=== PATIENT | female | born 1970 | race Caucasian/White ===

== ENCOUNTER 2017-09-01 11:27 | Emergency (ER) | payer BC ==
--- NOTE | 2017-09-01 12:19 | EDPHY ---
H & P Stated Complaint: RLQ PAIN Time Seen by Provider: 09/01/17 12:19 HPI/ROS: HPI: This is a 47-year-old female who presents with Chief Complaint: Right lower quadrant pain Location: Right lower quadrant Quality: Pain Duration: 1 month Signs and Symptoms: no fever, no nausea, no vomiting, no hematemesis, no blood in stool, no abdominal bloating, no diarrhea, no back pain, no urinary symptoms , no vaginal bleeding/discharge, no indigestion, no chest pain, no shortness of breath Timing: Worsening Severity: 02/13 Context: Patient has a history of cholecystectomy, hysterectomy presents with right lower quadrant pain that has been gradually worsening over the last month since she stopped taking her Adderall. She reports that she drinks fluid and is active. She had a bowel movement yesterday; small and hard. She is passing flatus. Patient reports that she has history of constipation in the past. Patient denies any fever/nausea/vomiting/diarrhea/blood in stool/vaginal discharge. Modifying Factors: None Comment: ROS: see HPI Constitutional: No fever, no chills, no weight loss Eyes: No blurred vision Respiratory: No shortness of breath, no cough Cardiovascular: No chest pain, no palpitations Gastrointestinal: No nausea, no vomiting, no diarrhea, no hematemesis, no blood in stool Genitourinary: No dysuria, no blood in urine Extremities: No myalgias, no edema Neurologic: No weakness, no numbness Skin: No rashes, no petechiae Hematologic: No bruising, no bleeding MEDICAL/SURGICAL/SOCIAL HISTORY: Medical history: Depression Surgical history: Hysterectomy, cholecystectomy Social history: Family history noncontributory. CONSTITUTIONAL: Severe distress, writhing in bed, middle-aged white female, awake and alert HEENT: Atraumatic and normocephalic, PERRL, EOMI. Nares patent; no rhinorrhea; no nasal mucosal edema. Tympanic membranes clear. Oropharynx clear, no exudate and moist pink mucosa. Airway patent. No lymphadenopathy. No meningismus. Cardiovascular: Normal S1/S2, regular rate, regular rhythm, without murmur rub or gallop. PULMONARY/CHEST: Symmetrical and nontender. Clear to auscultation bilaterally. Good air movement. No accessory muscle usage. ABDOMEN: Soft, nondistended, moderate right lower quadrant tenderness, no rebound, + guarding, no peritoneal signs, no masses or organomegaly. No CVAT. Bowel sounds hypoactive x4. EXTREMITIES: 2/2 pulses, strength 5/5, no deformities, no clubbing, no cyanosis or edema. NEUROLOGICAL: no focal neuro deficits. GCS 15. SKIN: Warm and dry, no erythema. no rash. Good capillary refill. Source: Patient Exam Limitations: No limitations - Personal History LMP (Females 10-55): Hysterectomy Current Tetanus/Diphtheria Vaccine: Yes Current Tetanus Diphtheria and Acellular Pertussis (TDAP): Yes - Medical/Surgical History Hx Asthma: No Hx Chronic Respiratory Disease: No Hx Diabetes: No Hx Cardiac Disease: No Hx Renal Disease: No Hx Cirrhosis: No Hx Alcoholism: No Hx HIV/AIDS: No Hx Splenectomy or Spleen Trauma: No Other PMH: DEPRESSION - Social History Smoking Status: Never smoked Constitutional: Initial Vital Signs Temperature (C) 37.1 C 09/01/17 11:34 Heart Rate 100 09/01/17 11:34 Respiratory Rate 15 09/01/17 11:34 Blood Pressure 116/82 H 09/01/17 11:34 O2 Sat (%) 98 09/01/17 11:34 O2 Delivery Mode Room Air Allergies/Adverse Reactions: No Known Allergies Allergy (Unverified 09/01/17 11:33) Home Medications: Medication Instructions Recorded Magnesium Citrate [Magnesium 300 ml PO ONCE #1 bottle 09/01/17 Citrate 300 ml (*)] Ondansetron Odt [Zofran Odt 4 mg 4 mg PO Q4 PRN #12 tab 09/01/17 (*)] Polyethylene Glycol 3350 [Miralax 17 gm PO DAILY #30 pkt 09/01/17 17 gm (*)] traZODone 09/01/17 Medical Decision Making - Diagnostics Imaging Results: Imaging Impressions Abdomen CT 09/01/17 12:32 Impression: 1. Constipation. No evidence for diverticulitis. 2. Status post cystectomy. Intrahepatic and extrahepatic biliary ductal dilatation, which can be seen status post cholecystectomy. There is also a mildly dilated pancreatic duct. No definite choledochal stone. MRCP could be performed for further evaluation as clinically warranted. 3. Chronic bilateral spondylolysis at L5. Mild early degenerative disk and degenerative joint disease in the lower lumbar spine. Results called and discussed with Kayla Borrero PA-C on September 01, 2017 at 1346 hours. ED Course/Re-evaluation: Labs, urinalysis, IV fluids, IV medication come CT abdomen and pelvis scan ordered Vital signs reviewed upon arrival and no systemic signs and stable. Given 1 L normal saline, IV Toradol, IV Dilaudid 1314: Labs reviewed. No signs of leukocytosis/anemia/LIZET/elevated LFTs/ electrolyte imbalance. Urinalysis shows no signs of infection. No hematuria. Called by radiologist, Dr. Marquez, who advised that appendix looks normal, status post cholecystectomy, no signs of diverticulitis/obstruction. + constipation 1435: Reassessed patient who is sitting up in bed talking and smiling with her friend. Patient given orders to take magnesium citrate 150 mL x1, if no response within 4-6 hours; take another 150 mg of magnesium citrate. She was given a prescription for MiraLax daily. Passed p.o. Trial prior to discharge This patient was seen under the supervision of my secondary supervising physician. I evaluated care for this patient independently. Differential Diagnosis: Abdominal pain including but not limited to appendicitis, cholecystitis, gastritis and urinary tract infection. - Data Points Laboratory Results: Laboratory Results 09/01/17 12:16 09/01/17 12:16 09/01/17 09/01/17 09/01/17 12:16 12:16 11:30 WBC 6.25 10^3/uL 10^3/uL (3.80-9.50) RBC 5.18 10^6/uL 10^6/uL (4.18-5.33) Hgb 15.9 g/dL g/dL (12.6-16.3) Hct 46.0 % % (38.0-47.0) MCV 88.8 fL fL (81.5-99.8) MCH 30.7 pg pg (27.9-34.1) MCHC 34.6 g/dL g/dL (32.4-36.7) RDW 12.0 % % (11.5-15.2) Plt Count 240 10^3/uL 10^3/uL (150-400) MPV 8.8 fL fL (8.7-11.7) Neut % (Auto) 65.2 % % (39.3-74.2) Lymph % (Auto) 28.0 % % (15.0-45.0) [place] % (Auto) 5.8 % % (4.5-13.0) Eos % (Auto) 0.2 % L % (0.6-7.6) Baso % (Auto) 0.5 % % (0.3-1.7) Nucleat RBC Rel Count 0.0 % % (0.0-0.2) Absolute Neuts (auto) 4.08 10^3/uL 10^3/uL (1.70-6.50) Absolute Lymphs (auto) 1.75 10^3/uL 10^3/uL (1.00-3.00) Absolute Monos (auto) 0.36 10^3/uL 10^3/uL (0.30-0.80) Absolute Eos (auto) 0.01 10^3/uL L 10^3/uL (0.03-0.40) Absolute Basos (auto) 0.03 10^3/uL 10^3/uL (0.02-0.10) Absolute Nucleated RBC 0.00 10^3/uL 10^3/uL (0-0.01) Immature Gran % 0.3 % % (0.0-1.1) Immature Gran # 0.02 10^3/uL 10^3/uL (0.00-0.10) Sodium 142 mEq/L mEq/L (135-145) Potassium 3.9 mEq/L mEq/L (3.5-5.2) Chloride 103 mEq/L mEq/L (97-110) Carbon Dioxide 29 mEq/l mEq/l (22-31) Anion Gap 10 mEq/L mEq/L (8-16) BUN 16 mg/dL mg/dL (7-23) Creatinine 0.6 mg/dL mg/dL (0.6-1.0) Estimated GFR > 60 Glucose 88 mg/dL mg/dL (70-100) Calcium 9.9 mg/dL mg/dL (8.5-10.4) Total Bilirubin 0.3 mg/dL mg/dL (0.1-1.4) Conjugated Bilirubin 0.2 mg/dL mg/dL (0.0-0.5) Unconjugated Bilirubin 0.1 mg/dL mg/dL (0.0-1.1) AST 32 IU/L IU/L (14-46) ALT 38 IU/L IU/L (9-52) Alkaline Phosphatase 56 IU/L IU/L (38-126) Total Protein 7.3 g/dL g/dL (6.3-8.2) Albumin 4.4 g/dL g/dL (3.5-5.0) Lipase 87 IU/L IU/L (23-300) Urine Color YELLOW Urine Appearance CLEAR Urine pH 6.0 (5.0-7.5) Ur Specific [place] 1.006 (1.002-1.030) Urine Protein NEGATIVE (NEGATIVE) Urine Ketones NEGATIVE (NEGATIVE) Urine Blood NEGATIVE (NEGATIVE) Urine Nitrate NEGATIVE (NEGATIVE) Urine Bilirubin NEGATIVE (NEGATIVE) Urine Urobilinogen NEGATIVE EU EU (0.2-1.0) Ur Leukocyte Esterase NEGATIVE (NEGATIVE) Urine RBC 1-3 /hpf /hpf (0-3) Urine WBC 1-3 /hpf /hpf (0-3) Ur Epithelial Cells TRACE /lpf /lpf (NONE-1+) Urine Bacteria TRACE /hpf H /hpf (NONE SEEN) Urine Glucose NEGATIVE (NEGATIVE) Medications Given: Discontinued Medications Hydromorphone HCl (Dilaudid) 1 mg IVP EDNOW ONE Stop: 09/01/17 12:32 Last Admin: 09/01/17 12:59 Dose: 1 mg Sodium Chloride (Ns) 1,000 mls @ 0 mls/hr IV EDNOW ONE; Wide Open PRN Reason: Protocol Stop: 09/01/17 12:32 Last Admin: 09/01/17 12:59 Dose: 1,000 mls Ketorolac Tromethamine (Toradol) 15 mg IVP EDNOW ONE Stop: 09/01/17 12:33 Last Admin: 09/01/17 12:59 Dose: 15 mg Ondansetron HCl (Zofran) 4 mg IVP EDNOW ONE Stop: 09/01/17 12:32 Last Admin: 09/01/17 12:59 Dose: 4 mg Departure - Departure Disposition: Home, Routine, Self-Care Clinical Impression: Constipation Qualifiers: Constipation type: other constipation type Qualified Code(s): K59.09 - Other constipation Condition: Good Instructions: Constipation (ED), High Fiber Diet (ED) Additional Instructions: Consume a minimum of 8-10 glasses of water or electrolyte fluid replacement drinks that include Gatorade, Powerade, Pedialyte. Eat a bland diet for the next 48 hours and then slowly advance as tolerated. Take Zofran 1 tab every 4 hours as needed for nausea, vomiting. Take Mag Citrate 150 mL and if no bowel movement in 6 hours take another 150 mL of Magnesium Citrate. Start taking MiraLax daily as needed for constipation. Return to the Emergency Room if symptoms do not resolve in the next 48-72 hours , you spike a fever > 102 F, or experience intractable abdominal pain/nausea/ vomiting. Referrals: Tierra Atkins FNP [Primary Care Provider] - As per Instructions Prescriptions: Magnesium Citrate [Magnesium Citrate 300 ml (*)] 300 ml PO ONCE #1 bottle Ondansetron Odt [Zofran Odt 4 mg (*)] 4 mg PO Q4 PRN #12 tab PRN Reason: Nausea/Vomiting, Use 1st Polyethylene Glycol 3350 [Miralax 17 gm (*)] 17 gm PO DAILY #30 pkt
[2017-09-01] MEDS ORDERED: NS 1,000 ML IV ONE (12:31)
[2017-09-01] MEDS ORDERED: ONDANSETRON 4 MG/2 ML VIAL IVP ONE (12:31)
[2017-09-01] MEDS ORDERED: HYDROmorphONE/DILAUDID 2 MG/ML INJ IVP ONE (12:31)
[2017-09-01] MEDS ORDERED: KETOROLAC 15 MG/1 ML SDV IVP ONE (12:32)
[2017-09-01 12:38] LABS: PLATELET COUNT 240 10^3/uL (150-400)
[2017-09-01] MEDS ORDERED: IOPAMIDOL (ISOVUE-300) 100 ML BTL ONE (13:10)
[2017-09-01 15:05] VITALS: BP 122/81
== END 2017-09-01 15:03 | disposition home or self-care (01) ==
DX: K59.09 Other constipation (principal); E86.9 Volume depletion, unspecified; Z90.49 Acquired absence of other specified parts of digestive tract; Z90.710 Acquired absence of both cervix and uterus
CPT/HCPCS: 96374; J1170; J1885; J2405; Q9967

== ENCOUNTER 2017-09-09 15:23 | Emergency (ER) | payer BC ==
--- NOTE | 2017-09-09 16:28 | EDPHY ---
H & P Time Seen by Provider: 09/09/17 16:17 HPI/ROS: CHIEF COMPLAINT: Abdominal pain HISTORY OF PRESENT ILLNESS: The patient is a 47-year-old female who presents emergency department ongoing abdominal pain. T patient was seen in the emergency room on 09/01/2017. Patient states she had a CT scan that showed constipation. Patient was treated with Mag citrate. She had good relief of her constipation at home. However, she has had ongoing right lower quadrant and suprapubic discomfort. Pain is moderate. It is worsening. It radiates up to her right flank. She has had no vomiting. No measured fever. She has chills when she has a bowel movement. REVIEW OF SYSTEMS: My complete review of systems is negative except as mentioned in the HPI. Past Medical/Surgical History: Includes iritis, cyst, depression Past surgical history: Cyst surgery, hysterectomy, oophorectomy Smoking Status: Never smoked Physical Exam: Vitals noted. Afebrile GENERAL: Well-appearing, in no acute distress, alert. HEENT: Eyes normal to inspection, normal pharynx, no signs of dehydration. NECK: [No thyromegaly, no lymphadenopathy, supple. RESPIRATORY: Clear to auscultation bilaterally, no rales, rhonchi or wheezing. CVS: Regular rate and rhythm, no rubs, murmurs, or gallops. ABDOMEN: Soft, mild right lower quadrant and suprapubic tenderness palpation with no rebound or guarding, nondistended, no organomegaly. BACK: Normal to inspection, no CVA tenderness. SKIN: Normal color, no rash, warm, dry. No pallor. EXTREMITIES: No pedal edema, no calf tenderness, no Hom[place] sign or cords, no joint swelling. NEURO/PSYCH: Alert and oriented, normal mood and affect, normal motor sensory exam. Constitutional: Initial Vital Signs Temperature (C) 36.7 C 09/09/17 15:44 Heart Rate 83 09/09/17 15:44 Respiratory Rate 18 09/09/17 15:44 Blood Pressure 112/79 09/09/17 15:44 O2 Sat (%) 97 09/09/17 15:44 O2 Delivery Mode Room Air Allergies/Adverse Reactions: No Known Allergies Allergy (Verified 09/09/17 15:43) Home Medications: Medication Instructions Recorded Magnesium Citrate [Magnesium 300 ml PO ONCE #1 bottle 09/01/17 Citrate 300 ml (*)] Ondansetron Odt [Zofran Odt 4 mg 4 mg PO Q4 PRN #12 tab 09/01/17 (*)] Polyethylene Glycol 3350 [Miralax 17 gm PO DAILY #30 pkt 09/01/17 17 gm (*)] traZODone 09/01/17 Cymbalta 09/09/17 PREMARIN 09/09/17 Medical Decision Making ED Course/Re-evaluation: In the emergency department I discussed possible etiologies with the patient. I answered all her questions. An IV was placed. Laboratory studies were obtained. Patient's CBC was normal. Chemistry panel and LFTs were normal. negative. I discussed the results with the patient. She was lying comfortably in the bed. CT scan was ordered for her right lower quadrant pain. CT abdomen pelvis: Please refer the dictated report. Patient is still constipated. No visible appendicitis. No obstruction. I discussed the results with the patient. I answered all her questions. The patient will take an additional dose of Mag citrate. She will be prescribed Colace. She will use Fleet's enema 3 times a day. I discussed this with the patient. She was given warnings prior to leaving. Differential Diagnosis: My differential includes but is not limited to small-bowel obstruction, perforation, adhesions, appendicitis, constipation, renal colic, urinary tract infection, pyelonephritis - Data Points Laboratory Results: Laboratory Results 09/09/17 16:30 09/09/17 16:30 09/09/17 09/09/17 09/09/17 17:00 16:30 16:30 WBC RBC Hgb Hct MCV MCH MCHC RDW Plt Count MPV Neut % (Auto) Lymph % (Auto) [place] % (Auto) Eos % (Auto) Baso % (Auto) Nucleat RBC Rel Count Absolute Neuts (auto) Absolute Lymphs (auto) Absolute Monos (auto) Absolute Eos (auto) Absolute Basos (auto) Absolute Nucleated RBC Immature Gran % Immature Gran # Sodium 141 mEq/L mEq/L (135-145) Potassium 4.3 mEq/L mEq/L (3.5-5.2) Chloride 105 mEq/L mEq/L (97-110) Carbon Dioxide 25 mEq/l mEq/l (22-31) Anion Gap 11 mEq/L mEq/L (8-16) BUN 10 mg/dL mg/dL (7-23) Creatinine 0.6 mg/dL mg/dL (0.6-1.0) Estimated GFR > 60 Glucose 97 mg/dL mg/dL (70-100) Calcium 9.2 mg/dL mg/dL (8.5-10.4) Total Bilirubin 0.4 mg/dL mg/dL (0.1-1.4) Conjugated Bilirubin 0.4 mg/dL mg/dL (0.0-0.5) Unconjugated Bilirubin 0.0 mg/dL mg/dL (0.0-1.1) AST 21 IU/L IU/L (14-46) ALT 33 IU/L IU/L (9-52) Alkaline Phosphatase 45 IU/L IU/L (38-126) Total Protein 6.5 g/dL g/dL (6.3-8.2) Albumin 3.9 g/dL g/dL (3.5-5.0) Lipase 78 IU/L IU/L (23-300) Beta HCG, Qual NEGATIVE Urine Color PALE YELLOW Urine Appearance CLEAR Urine pH 6.0 (5.0-7.5) Ur Specific [place] 1.004 (1.002-1.030) Urine Protein NEGATIVE (NEGATIVE) Urine Ketones NEGATIVE (NEGATIVE) Urine Blood NEGATIVE (NEGATIVE) Urine Nitrate NEGATIVE (NEGATIVE) Urine Bilirubin NEGATIVE (NEGATIVE) Urine Urobilinogen NEGATIVE EU EU (0.2-1.0) Ur Leukocyte Esterase NEGATIVE (NEGATIVE) Urine RBC 1-3 /hpf /hpf (0-3) Urine WBC 1-3 /hpf /hpf (0-3) Ur Epithelial Cells TRACE /lpf /lpf (NONE-1+) Urine Bacteria TRACE /hpf H /hpf (NONE SEEN) Urine Glucose NEGATIVE (NEGATIVE) 09/09/17 16:30 WBC 4.48 10^3/uL 10^3/uL (3.80-9.50) RBC 4.86 10^6/uL 10^6/uL (4.18-5.33) Hgb 15.0 g/dL g/dL (12.6-16.3) Hct 43.9 % % (38.0-47.0) MCV 90.3 fL fL (81.5-99.8) MCH 30.9 pg pg (27.9-34.1) MCHC 34.2 g/dL g/dL (32.4-36.7) RDW 12.3 % % (11.5-15.2) Plt Count 217 10^3/uL 10^3/uL (150-400) MPV 8.5 fL L fL (8.7-11.7) Neut % (Auto) 56.0 % % (39.3-74.2) Lymph % (Auto) 34.2 % % (15.0-45.0) [place] % (Auto) 8.0 % % (4.5-13.0) Eos % (Auto) 0.7 % % (0.6-7.6) Baso % (Auto) 0.7 % % (0.3-1.7) Nucleat RBC Rel Count 0.0 % % (0.0-0.2) Absolute Neuts (auto) 2.51 10^3/uL 10^3/uL (1.70-6.50) Absolute Lymphs (auto) 1.53 10^3/uL 10^3/uL (1.00-3.00) Absolute Monos (auto) 0.36 10^3/uL 10^3/uL (0.30-0.80) Absolute Eos (auto) 0.03 10^3/uL 10^3/uL (0.03-0.40) Absolute Basos (auto) 0.03 10^3/uL 10^3/uL (0.02-0.10) Absolute Nucleated RBC 0.00 10^3/uL 10^3/uL (0-0.01) Immature Gran % 0.4 % % (0.0-1.1) Immature Gran # 0.02 10^3/uL 10^3/uL (0.00-0.10) Sodium Potassium Chloride Carbon Dioxide Anion Gap BUN Creatinine Estimated GFR Glucose Calcium Total Bilirubin Conjugated Bilirubin Unconjugated Bilirubin AST ALT Alkaline Phosphatase Total Protein Albumin Lipase Beta HCG, Qual Urine Color Urine Appearance Urine pH Ur Specific [place] Urine Protein Urine Ketones Urine Blood Urine Nitrate Urine Bilirubin Urine Urobilinogen Ur Leukocyte Esterase Urine RBC Urine WBC Ur Epithelial Cells Urine Bacteria Urine Glucose Medications Given: Discontinued Medications Fentanyl (Sublimaze) 50 mcg IVP EDNOW ONE Stop: 09/09/17 16:30 Last Admin: 09/09/17 16:36 Dose: 50 mcg Sodium Chloride (Ns) 1,000 mls @ 0 mls/hr IV EDNOW ONE; Wide Open PRN Reason: Protocol Stop: 09/09/17 16:30 Last Admin: 09/09/17 16:36 Dose: 1,000 mls Ondansetron HCl (Zofran) 4 mg IVP EDNOW ONE Stop: 09/09/17 16:30 Last Admin: 09/09/17 16:36 Dose: 4 mg Departure - Departure Disposition: Home, Routine, Self-Care Clinical Impression: Abdominal pain Qualifiers: Abdominal location: lower abdomen, unspecified Qualified Code(s): R10.30 - Lower abdominal pain, unspecified Constipation Qualifiers: Constipation type: other constipation type Qualified Code(s): K59.09 - Other constipation Condition: Good Instructions: Acute Abdominal Pain (ED) Additional Instructions: Return with increasing pain, vomiting, fever or any other concerns. Referrals: Joey Miller MD [Medical Doctor] - 5-7 days, if not improved
[2017-09-09] MEDS ORDERED: ONDANSETRON 4 MG/2 ML VIAL IVP ONE (16:29)
[2017-09-09] MEDS ORDERED: fentaNYL 100 MCG/2 ML INJ IVP ONE (16:29)
[2017-09-09] MEDS ORDERED: NS 1,000 ML IV ONE (16:29)
[2017-09-09 16:41] LABS: PLATELET COUNT 217 10^3/uL (150-400)
[2017-09-09] MEDS ORDERED: IOPAMIDOL (ISOVUE-300) 100 ML BTL ONE (17:41)
[2017-09-09 18:42] VITALS: BP 110/73
== END 2017-09-09 18:42 | disposition home or self-care (01) ==
DX: K59.09 Other constipation (principal); E86.9 Volume depletion, unspecified; Z90.710 Acquired absence of both cervix and uterus
CPT/HCPCS: 96374; J2405; J3010; Q9967

== ENCOUNTER 2017-09-14 13:04 | Emergency (ER) | payer BC ==
--- NOTE | 2017-09-14 13:24 | EDPHY ---
H & P Stated Complaint: R AND L PELVIC PAIN, AND LOWER BACK PAIN Time Seen by Provider: 09/14/17 13:20 HPI/ROS: CHIEF COMPLAINT: Right low pelvic pain, right flank pain HISTORY OF PRESENT ILLNESS: This is a 47-year-old female who presents the emergency department for her 3rd visit in 6 weeks time for ongoing right low abdominal pain. Patient is status post total hysterectomy, bilateral salpingectomy, and bilateral oophorectomy the performed a number of years ago for cyst and endometriosis. She has presented on 2 occasions previously with complaints of severe right adnexal pain, right lower quadrant pain, right flank pain, and left adnexal pain. CT scans performed on both occasions demonstrates significant constipation with no other findings. Patient presents today with similar complaints. She has significant waves of right lower quadrant/right adnexal discomfort. Denies fevers. No vomiting but she is nauseous. No diarrhea. Previously, when she has had treatment for her constipation, her symptoms improve but then return. No fever, chills, chest pain, shortness of breath, palpitations, vomiting, diarrhea, urinary complaints, headache, lightheadedness. REVIEW OF SYSTEMS: Aside from elements discussed in the HPI, a comprehensive 10-point review of systems was reviewed and is negative. PAST MEDICAL HISTORY: Rheumatoid arthritis, endometriosis. SOCIAL HISTORY: Positive marijuana, nonsmoker, no alcohol use. VITAL SIGNS Reviewed by me. GENERAL: Appears uncomfortable, shaky, holding her right lower stomach. HEENT: Atraumatic. Eyes: No icterus, no injection. Mouth: moist mucous membranes. No erythema or lesions. Neck: supple with no adenopathy. LUNGS: Clear to auscultation bilaterally, no wheezes, rhonchi or rales. CARDIAC: Regular rate and rhythm, no rubs, murmurs or gallops. ABDOMEN: Soft, nondistended. Significant tenderness in the right lower quadrant, and right adnexal area. Voluntary guarding. Also suprapubic tenderness. BACK: No CVA tenderness. EXTREMITIES: No trauma. No edema. Range of motion is normal throughout. NEURO: Alert and oriented, grossly nonfocal. SKIN: Warm and dry, no rash. PSYCHIATRIC: Normal mentation, no agitation. - Personal History LMP (Females 10-55): Hysterectomy Current Tetanus Diphtheria and Acellular Pertussis (TDAP): Yes - Medical/Surgical History Hx Asthma: No Hx Chronic Respiratory Disease: No Hx Diabetes: No Hx Cardiac Disease: No Hx Renal Disease: No Hx Cirrhosis: No Hx Alcoholism: No Hx HIV/AIDS: No Hx Splenectomy or Spleen Trauma: No Other PMH: DEPRESSION, HYSTERECTOMY, DOUBLE MASTECTOMY PROPHYLACTIC, MAKENNA SX - Social History Smoking Status: Never smoked Constitutional: Initial Vital Signs Temperature (C) 37.0 C 09/14/17 13:10 Heart Rate 124 H 09/14/17 13:10 Respiratory Rate 20 09/14/17 13:10 Blood Pressure 124/110 H 09/14/17 13:10 O2 Sat (%) 96 09/14/17 13:10 O2 Delivery Mode Room Air Allergies/Adverse Reactions: No Known Allergies Allergy (Verified 09/09/17 15:43) Home Medications: Medication Instructions Recorded Magnesium Citrate [Magnesium 300 ml PO ONCE #1 bottle 09/01/17 Citrate 300 ml (*)] Ondansetron Odt [Zofran Odt 4 mg 4 mg PO Q4 PRN #12 tab 09/01/17 (*)] Polyethylene Glycol 3350 [Miralax 17 gm PO DAILY #30 pkt 09/01/17 17 gm (*)] traZODone 09/01/17 Cymbalta 09/09/17 Docusate Sodium [Colace 100 MG (*)] 100 mg PO BID 7 Days cap 09/09/17 Magnesium Citrate [Magnesium 300 ml PO ONCE #1 bottle 09/09/17 Citrate 300 ml (*)] PREMARIN 09/09/17 Dicyclomine [Bentyl 20 MG (*)] 20 mg PO QID #40 tab 09/14/17 Medical Decision Making - Diagnostics Imaging Results: Pelvic/Renal Ultrasound 09/14/17 13:49 Impression: 1. Status post hysterectomy and bilateral oophorectomies, with no adnexal mass. 2. Numerous fluid-filled loops of peristalsing bowel seen within the pelvis. Given the patient's symptoms, could she have an enteric dysmotile syndrome? Findings were discussed with Moon Johnson MD at 14:57, on 09/14/2017. . ED Course/Re-evaluation: Review patient's prior charts demonstrates 2 CT scans which have only indicated significant constipation. Patient has not seen Gastroenterology and does not have a Dumpster Driver who she has seen. She reports that the pain is coming in waves. Patient received Zofran, Toradol, Dilaudid. Pelvic ultrasound was obtained. Labs are largely unremarkable. Ultrasound today demonstrates multiple fluid-filled loops of bowel sitting in the low pelvis. Radiology is impression is that this may represent a GI dysmotility syndrome. Patient was improved with Bentyl. She will follow up with Gastroenterology on an urgent basis and have also given referral to Assembly Inspector Helper. We discussed GI dysmotility syndrome as well as discussed the need for a colonoscopy to evaluate for her issues with ongoing constipation. We discussed the possibility of residual endometriosis and encouraged her to follow up with Assembly Inspector Helper. She feels comfortable being discharged. Differential Diagnosis: The differential diagnosis for the patient's abdominal pain was considered including but not limited to chronic pelvic pain, constipation, urinary tract infection, appendicitis, endometriosis. - Data Points Laboratory Results: Laboratory Results 09/14/17 14:06 09/14/17 14:06 Medications Given: Discontinued Medications Al Hydroxide/Mg Hydroxide (Maalox Susp) 30 ml PO EDNOW ONE Stop: 09/14/17 14:52 Last Admin: 09/14/17 14:56 Dose: 30 ml Dicyclomine HCl (Bentyl) 20 mg PO EDNOW ONE Stop: 09/14/17 15:04 Last Admin: 09/14/17 15:11 Dose: 20 mg Diphenhydramine HCl (Benadryl Injection) 25 mg IVP EDNOW ONE Stop: 09/14/17 15:04 Last Admin: 09/14/17 15:12 Dose: 25 mg Haloperidol Lactate (Haldol Injection) 2.5 mg IVP EDNOW ONE Stop: 09/14/17 15:04 Last Admin: 09/14/17 15:12 Dose: 2.5 mg Hydromorphone HCl (Dilaudid) 1 mg IVP EDNOW ONE Stop: 09/14/17 13:50 Last Admin: 09/14/17 14:05 Dose: 1 mg Sodium Chloride (Ns) 1,000 mls @ 0 mls/hr IV EDNOW ONE; Wide Open PRN Reason: Protocol Stop: 09/14/17 13:50 Last Admin: 09/14/17 14:05 Dose: 1,000 mls Sodium Chloride (Ns) 1,000 mls @ 0 mls/hr IV ONCE ONE; Wide Open PRN Reason: Protocol Stop: 09/14/17 13:51 Last Admin: 09/14/17 15:37 Dose: 1,000 mls Ketorolac Tromethamine (Toradol) 30 mg IVP EDNOW ONE Stop: 09/14/17 13:50 Last Admin: 09/14/17 14:04 Dose: 30 mg Metoclopramide HCl (Reglan Injection) 10 mg IVP EDNOW ONE Stop: 09/14/17 15:04 Last Admin: 09/14/17 15:13 Dose: 10 mg Ondansetron HCl (Zofran) 4 mg IVP EDNOW ONE Stop: 09/14/17 13:50 Last Admin: 09/14/17 14:06 Dose: 4 mg Departure - Departure Disposition: Home, Routine, Self-Care Clinical Impression: Abdominal pain Qualifiers: Abdominal location: lower abdomen, unspecified Qualified Code(s): R10.30 - Lower abdominal pain, unspecified Condition: Good Instructions: Dicyclomine (By mouth), Chronic Abdominal Pain (ED) Additional Instructions: Please make an appointment and follow up with GI as soon as possible. You have also been given referral to dice table operator. I suggest you begin taking Bentyl as directed. I also recommend repeating MiraLax. For pain, please consider ibuprofen 600 mg every 8 hr with food around the clock for anti inflammation as well as anti prostaglandin effects. Referrals: Tierra Atkins, [facility] [Primary Care Provider] - As per Instructions Joey Miller MD [Medical Doctor] - As per Instructions Twila Russell MD [Medical Doctor] - As per Instructions Prescriptions: Dicyclomine [Bentyl 20 MG (*)] 20 mg PO QID #40 tab
[2017-09-14] MEDS ORDERED: KETOROLAC 30 MG/1 ML SDV IVP ONE (13:49)
[2017-09-14] MEDS ORDERED: HYDROmorphONE/DILAUDID 2 MG/ML INJ IVP ONE (13:49)
[2017-09-14] MEDS ORDERED: ONDANSETRON 4 MG/2 ML VIAL IVP ONE (13:49)
[2017-09-14] MEDS ORDERED: NS 1,000 ML IV ONE ×2 (13:49→13:50)
[2017-09-14 14:16] LABS: PLATELET COUNT 226 10^3/uL (150-400)
[2017-09-14] MEDS ORDERED: MAG HYDROX/AL HYDROX/SIMETH 30 ML UDCUP PO ONE (14:51)
[2017-09-14] MEDS ORDERED: MAG HYDROX/AL HYDROX/SIMETH 30 ML UDCUP ONE (14:52)
[2017-09-14] MEDS ORDERED: DICYCLOMINE 10 MG CAP PO ONE (15:03)
[2017-09-14] MEDS ORDERED: HALOPERIDOL LACT 5 MG/ML INJ IVP ONE (15:03)
[2017-09-14] MEDS ORDERED: METOCLOPRAMIDE 10 MG/2 ML VIAL IVP ONE (15:03)
[2017-09-14 16:49] VITALS: BP 129/77
== END 2017-09-14 16:50 | disposition home or self-care (01) ==
DX: R10.31 Right lower quadrant pain (principal); E86.9 Volume depletion, unspecified; Z90.710 Acquired absence of both cervix and uterus
CPT/HCPCS: 96374; J1170; J1200; J1630; J1885; J2405; J2765

== ENCOUNTER 2017-09-18 11:50 | Inpatient (IN) | payer BC ==
--- NOTE | 2017-09-18 13:09 | EDPHY ---
H & P Stated Complaint: RLQ abd pain - Personal History LMP (Females 10-55): Hysterectomy Current Tetanus/Diphtheria Vaccine: Yes Current Tetanus Diphtheria and Acellular Pertussis (TDAP): Yes - Medical/Surgical History Hx Asthma: No Hx Chronic Respiratory Disease: No Hx Diabetes: No Hx Cardiac Disease: No Hx Renal Disease: No Hx Cirrhosis: No Hx Alcoholism: No Hx HIV/AIDS: No Hx Splenectomy or Spleen Trauma: No Other PMH: DEPRESSION, HYSTERECTOMY, DOUBLE MASTECTOMY PROPHYLACTIC, MAKENNA SX - Social History Smoking Status: Never smoked Time Seen by Provider: 09/18/17 12:57 HPI/ROS: CHIEF COMPLAINT: Continued right lower quadrant abdominal HISTORY OF PRESENT ILLNESS: 47-year-old female in the ER complaining of continued right lower quadrant abdominal pain. This is her 4th emergency department visit in 6 weeks for same complaints. She has had CT x2, pelvic ultrasonography x1. She has a remote history of total hysterectomy and multiple abdominal surgeries for endometriosis. She has had positive bowel movements with no melena or hematochezia but notes that the pain continues. REVIEW OF SYSTEMS: A ten point review of systems was performed and is negative with the exception of the items mentioned in the HPI PAST MEDICAL & SURGICAL HISTORY: Total hysterectomy. Rheumatoid arthritis. Endometriosis. SOCIAL HISTORY: Nonsmoker. PHYSICAL EXAM (Prior to examination, patient consented to physical exam, hands were washed and my usual and customary physical exam procedures followed) 1) GENERAL: Well-developed, well-nourished, alert and oriented. Appears uncomfortable, crying 2) HEAD: Normocephalic, atraumatic 3) HEENT: Pupils equal, round, reactive to light bilaterally. Sclera anicteric. Nasopharynx, oropharynx, clear, no lesions. 4) NECK: Full range of motion, no meningeal signs. 5) LUNGS: Clear auscultation bilaterally, no wheezes, no rhonchi, no retractions. 6) HEART: Regular rate and rhythm, no murmur, no heave, no gallop. 7) ABDOMEN: Guarding abdomen, tender to palpation right lower quadrant,, 8) MUSCULOSKELETAL: Moving all extremities, no focal areas of tenderness, no obvious trauma. No peripheral edema or discoloration. 9) BACK: No CVA tenderness, no midline vertebral tenderness, no fluctuance, no step-off, no obvious trauma, no visual or palpable abnormality. 10) SKIN: No rash, no petechiae. 11) Psychiatric: Patient is oriented X 3, there is no agitation. DIFFERENTIAL DIAGNOSIS: My differential diagnosis includes, but is not limited to, acute appendicitis, acute cholecystitis, bowel obstruction, acute pancreatitis, ovarian torsion, ectopic , gastritis and urinary tract infection. The patient understands that this diagnosis is provisional and can never be 100% accurate. This is a partial list of diagnoses considered. These considerations are based on history, physical exam, past history and reassessment. (Negrito De Jesus) Constitutional: Initial Vital Signs Temperature (C) 37 C 09/18/17 11:53 Heart Rate 98 09/18/17 11:53 Respiratory Rate 16 09/18/17 11:53 Blood Pressure 120/82 H 09/18/17 11:53 O2 Sat (%) 96 09/18/17 11:53 O2 Delivery Mode Room Air Allergies/Adverse Reactions: No Known Allergies Allergy (Verified 09/18/17 11:53) Home Medications: Medication Instructions Recorded DULoxetine [Cymbalta 60 MG (*)] 60 mg PO HS 09/18/17 Docusate Sodium [Colace 100 MG (*)] 400 mg PO HS 09/18/17 Estrogens,Conjugated [Premarin 0.3 0.3 mg PO HS 09/18/17 MG (*)] Magnesium Hydroxide [Milk of 2,400 mg PO DAILY PRN 09/18/17 Magnesia] Melatonin [Melatonin 3 MG (*)] 3 mg PO HS 09/18/17 Naproxen Sodium [Aleve 220 MG (*)] 440 mg PO DAILY PRN 09/18/17 traZODone [traZODONE 100MG (*)] 100 mg PO HS 09/18/17 Medical Decision Making - Diagnostics Imaging Results: Images reviewed myself (Negrito De Jesus) ED Course/Re-evaluation: 1:40 p.m.: Patient noted to have multiple air-fluid levels on upright abdominal x-ray. Will plan on further diagnostic studies including CT imaging and admission as she has had multiple ER visits recently for similar complaints. Care of patient under supervision of secondary supervising physician Dr Barber . 3:26 p.m.: Discussed with patient her imaging results. She continues to complain of quite a bit of discomfort. Plan will be admission to hospital which patient is comfortable and agreeable with. Doubt acute appendicitis. Consultation with hospitalist Dr. López who will admit patient. (Negrito De Jesus ) I did not see this patient while she was in the emergency department. However her care was discussed with the PA while the patient was in the department. Agree with treatment plan and management (Dung Barber) - Data Points Laboratory Results: Laboratory Results 09/18/17 13:53 09/18/17 13:53 Medications Given: Acetaminophen (Tylenol) 650 mg PO Q4HRS PRN PRN Reason: Pain, Mild/Fever, Can Take PO Stop: 03/17/18 16:10 Last Admin: 09/20/17 10:08 Dose: 650 mg Docusate Sodium (Colace) 200 mg PO HS EVERARDO Stop: 03/17/18 20:59 Last Admin: 09/19/17 21:04 Dose: 200 mg Duloxetine HCl (Cymbalta) 60 mg PO HS EVERARDO Stop: 03/17/18 20:59 Last Admin: 09/20/17 21:06 Dose: 60 mg Estrogens Conjugated (Premarin) 0.3 mg PO HS EVERARDO Stop: 03/17/18 20:59 Last Admin: 09/20/17 21:06 Dose: 0.3 mg Hydromorphone/Sodium Chloride (Hydromorphone) 0.2 - 0.4 mg IVP Q2H PRN PRN Reason: Pain, Severe Unable to Take PO Stop: 09/30/17 11:59 Last Admin: 09/21/17 00:31 Dose: 0.2 mg Dextrose/Sodium Chloride (D5w Ns) 1,000 mls @ 100 mls/hr IV CONT EVERARDO Stop: 03/17/18 17:29 Last Admin: 09/19/17 15:40 Dose: 1,000 mls Lactated Ringer's (Lr) 1,000 mls @ 25 mls/hr IV ONCALL ONE Stop: 09/22/17 02:54 Last Admin: 09/20/17 11:26 Dose: 1,000 mls Melatonin (Melatonin) 3 mg PO HS EVERARDO Stop: 03/17/18 20:59 Last Admin: 09/20/17 21:06 Dose: 3 mg Ondansetron HCl (Zofran) 4 mg IVP Q4HRS PRN PRN Reason: Nausea/Vomiting, Can't Take PO Stop: 03/17/18 16:10 Last Admin: 09/19/17 23:36 Dose: 4 mg Ondansetron HCl (Zofran Odt) 4 mg PO Q4HRS PRN PRN Reason: Nausea/Vomiting, Use 1st Stop: 03/17/18 16:10 Last Admin: 09/20/17 09:00 Dose: 4 mg Oxycodone HCl (Oxycodone Ir) 5 - 10 mg PO Q3HRS PRN PRN Reason: Pain, Severe Able to Take PO Stop: 09/28/17 16:10 Last Admin: 09/20/17 08:46 Dose: 10 mg Trazodone HCl (Trazodone) 100 mg PO HS EVERARDO Stop: 03/17/18 20:59 Last Admin: 09/20/17 21:06 Dose: 100 mg Discontinued Medications Hydromorphone HCl (Dilaudid) 0.2 - 0.4 mg IVP Q4HRS PRN PRN Reason: Pain, Severe Unable to Take PO Stop: 09/28/17 16:10 Last Admin: 09/19/17 16:49 Dose: 0.4 mg Hydromorphone HCl (Dilaudid) 1 mg IVP ONCE ONE Stop: 09/19/17 13:07 Last Admin: 09/19/17 13:13 Dose: 1 mg Hydromorphone HCl (Dilaudid) 0.2 - 0.4 mg IVP Q4HRS PRN PRN Reason: Pain, Severe Unable to Take PO Stop: 09/28/17 16:10 Last Admin: 09/20/17 12:00 Dose: 0.4 mg Hydromorphone HCl (Dilaudid) 0.1 - 0.4 mg IVP Q10M PRN PRN Reason: PACU, PAIN Stop: 09/20/17 13:08 Last Admin: 09/20/17 13:40 Dose: 0.4 mg Hydromorphone/Sodium Chloride (Hydromorphone) 0.2 - 0.4 mg IVP Q4HRS PRN PRN Reason: Pain, Severe Unable to Take PO Stop: 09/28/17 16:10 Last Admin: 09/20/17 06:00 Dose: 0.4 mg Ondansetron HCl (Zofran) 2 - 4 mg IVP Q10M PRN PRN Reason: PACU, Nausea/Vomiting Stop: 09/20/17 13:08 Last Admin: 09/20/17 13:36 Dose: 4 mg Polyethylene Glycol/Electrolytes (Gavilyte - G) 4,000 ml PO ONCE ONE Stop: 09/19/17 16:36 Last Admin: 09/19/17 16:48 Dose: 4,000 ml Departure - Departure Disposition: [facility] Inpatient Acute Clinical Impression: Ileus Abdominal pain Qualifiers: Abdominal location: right lower quadrant Qualified Code(s): R10.31 - Right lower quadrant pain Condition: Fair
[2017-09-18 14:03] LABS: PLATELET COUNT 232 10^3/uL (150-400)
[2017-09-18] MEDS ORDERED: IOPAMIDOL (ISOVUE-300) 100 ML BTL ONE (14:37)
[2017-09-18] MEDS ORDERED: NAPROXEN SODIUM 220 MG TAB PO PRN (16:13)
[2017-09-18] MEDS ORDERED: D5W NS W/ 20 KCl/L 1,000 ML IV SCH (16:15)
--- NOTE | 2017-09-18 16:19 | PDGENHP ---
History and Physical - Chief Complaint abdominal pain - History of Present Illness 47 yo female with h/o endometriosis and BRCA gene positive s/p b/l mastectomy and TLH-BSO presents to ED with abdominal pain, worsening over past month. Pain is localized to RLQ. She underwent b/l mastectomy in 2014 and TLH-BSO the following year at which time a "grapefruit sized cyst" was removed from her right adnexal region. Prior to that, she had at least 2 laparoscopic surgeries for endometriosis. She has intermittent abdominal symptoms and generally is able to calm her symptoms down, but her pain has increased over past month and in past 2 days, became unbearable, prompting several visits to the ED. No nausea or vomiting. Her last BM was yesterday and was relatively normal. She uses frequent stool softeners and laxatives. No fevers/chills. She is currently pain free, but given ongoing symptoms and recurrent ED visits, is admitted to the hospital for further management. CT scan in the ED with IV (no oral) contrast showed changes c/w an ileus. History Information - Allergies/Home Medication List Allergies/Adverse Reactions: No Known Allergies Allergy (Verified 09/18/17 11:53) Home Medications: DULoxetine [Cymbalta 60 MG (*)] 60 mg PO HS 09/18/17 [Last Taken 09/17/17] Docusate Sodium [Colace 100 MG (*)] 400 mg PO HS 09/18/17 [Last Taken Unknown] Estrogens,Conjugated [Premarin 0.3 MG (*)] 0.3 mg PO HS 09/18/17 [Last Taken ] Magnesium Hydroxide [Milk of Magnesia] 2,400 mg PO DAILY PRN 09/18/17 [Last Taken Unknown] Melatonin [Melatonin 3 MG (*)] 3 mg PO HS 09/18/17 [Last Taken Unknown] Naproxen Sodium [Aleve 220 MG (*)] 440 mg PO DAILY PRN 09/18/17 [Last Taken Unknown] traZODone [traZODONE 100MG (*)] 100 mg PO HS 09/18/17 [Last Taken Unknown] I have personally reviewed and updated: family history, medical history, social history, surgical history - Past Medical History Additional medical history: BRCA positive s/p b/l mastectomy 2014 and TLH-BSO 2016. Endometriosis s/p laparoscopy x3. Depression / Anxiety - Surgical History Additional surgical history: [facility]-BSO. Laparoscopy x3 for endometriosis. B/L mastectomy - preventive for BRCA positivity - Family History Additional family history: Maternal aunt from ovarian cancer. another maternal aunt from breast cancer - Social History Smoking Status: Never smoked Alcohol Use: None Drug Use: None Additional social history: Lives independently, works as a instructor dancing Review of Systems Review of Systems: ROS: 10pt was reviewed & negative except for what was stated in HPI & below Physical Exam Physical Exam: Temp Pulse Resp BP Pulse Ox 37.2 C 68 16 120/78 95 09/18/17 15:16 09/18/17 15:16 09/18/17 15:16 09/18/17 15:16 09/18/17 15:16 Constitutional: no apparent distress Eyes: PERRL Ears, Nose, Mouth, Throat: moist mucous membranes Cardiovascular: regular rate and rhythym Respiratory: no respiratory distress, clear to auscultation Gastrointestinal: normoactive bowel sounds, other (soft, nd, +TTP RLQ, no r/r/g or peritoneal signs) Skin: warm Musculoskeletal: full muscle strength Neurologic: AAOx3 Psychiatric: interacting appropriately Lab Data & Imaging Review 09/18/17 13:53 09/18/17 13:53 WBC 5.71 10^3/uL (3.80-9.50) 09/18/17 13:53 RBC 4.59 10^6/uL (4.18-5.33) 09/18/17 13:53 Hgb 14.2 g/dL (12.6-16.3) 09/18/17 13:53 Hct 41.5 % (38.0-47.0) 09/18/17 13:53 MCV 90.4 fL (81.5-99.8) 09/18/17 13:53 MCH 30.9 pg (27.9-34.1) 09/18/17 13:53 MCHC 34.2 g/dL (32.4-36.7) 09/18/17 13:53 RDW 12.5 % (11.5-15.2) 09/18/17 13:53 Plt Count 232 10^3/uL (150-400) 09/18/17 13:53 MPV 8.5 fL (8.7-11.7) L 09/18/17 13:53 Neut % (Auto) 66.2 % (39.3-74.2) 09/18/17 13:53 Lymph % (Auto) 25.6 % (15.0-45.0) 09/18/17 13:53 [place] % (Auto) 7.2 % (4.5-13.0) 09/18/17 13:53 Eos % (Auto) 0.4 % (0.6-7.6) L 09/18/17 13:53 Baso % (Auto) 0.4 % (0.3-1.7) 09/18/17 13:53 Nucleat RBC Rel Count 0.0 % (0.0-0.2) 09/18/17 13:53 Absolute Neuts (auto) 3.79 10^3/uL (1.70-6.50) 09/18/17 13:53 Absolute Lymphs (auto) 1.46 10^3/uL (1.00-3.00) 09/18/17 13:53 Absolute Monos (auto) 0.41 10^3/uL (0.30-0.80) 09/18/17 13:53 Absolute Eos (auto) 0.02 10^3/uL (0.03-0.40) L 09/18/17 13:53 Absolute Basos (auto) 0.02 10^3/uL (0.02-0.10) 09/18/17 13:53 Absolute Nucleated RBC 0.00 10^3/uL (0-0.01) 09/18/17 13:53 Immature Gran % 0.2 % (0.0-1.1) 09/18/17 13:53 Immature Gran # 0.01 10^3/uL (0.00-0.10) 09/18/17 13:53 Sodium 140 mEq/L (135-145) 09/18/17 13:53 Potassium 4.6 mEq/L (3.3-5.0) 09/18/17 13:53 Chloride 102 mEq/L (97-110) 09/18/17 13:53 Carbon Dioxide 27 mEq/l (22-31) 09/18/17 13:53 Anion Gap 11 mEq/L (8-16) 09/18/17 13:53 BUN 15 mg/dL (7-23) 09/18/17 13:53 Creatinine 0.7 mg/dL (0.6-1.0) 09/18/17 13:53 Estimated GFR > 60 09/18/17 13:53 Glucose 80 mg/dL (70-100) 09/18/17 13:53 Calcium 9.0 mg/dL (8.5-10.4) 09/18/17 13:53 Total Bilirubin 0.5 mg/dL (0.1-1.4) 09/18/17 13:53 Conjugated Bilirubin 0.4 mg/dL (0.0-0.5) 09/18/17 13:53 Unconjugated Bilirubin 0.1 mg/dL (0.0-1.1) 09/18/17 13:53 AST 30 IU/L (14-46) 09/18/17 13:53 ALT 57 IU/L (9-52) H 09/18/17 13:53 Alkaline Phosphatase 57 IU/L (38-126) 09/18/17 13:53 Total Protein 6.7 g/dL (6.3-8.2) 09/18/17 13:53 Albumin 4.1 g/dL (3.5-5.0) 09/18/17 13:53 Lipase 73 IU/L (23-300) 09/18/17 13:53 Urine Color YELLOW 09/18/17 12:47 Urine Appearance CLEAR 09/18/17 12:47 Urine pH 7.0 (5.0-7.5) 09/18/17 12:47 Ur Specific [place] 1.019 (1.002-1.030) 09/18/17 12:47 Urine Protein NEGATIVE (NEGATIVE) 09/18/17 12:47 Urine Ketones NEGATIVE (NEGATIVE) 09/18/17 12:47 Urine Blood NEGATIVE (NEGATIVE) 09/18/17 12:47 Urine Nitrate NEGATIVE (NEGATIVE) 09/18/17 12:47 Urine Bilirubin NEGATIVE (NEGATIVE) 09/18/17 12:47 Urine Urobilinogen NEGATIVE EU (0.2-1.0) 09/18/17 12:47 Ur Leukocyte Esterase NEGATIVE (NEGATIVE) 09/18/17 12:47 Urine RBC NONE SEEN /hpf (0-3) 09/18/17 12:47 Urine WBC 1-3 /hpf (0-3) 09/18/17 12:47 Ur Epithelial Cells TRACE /lpf (NONE-1+) 09/18/17 12:47 Urine Bacteria TRACE /hpf (NONE SEEN) H 09/18/17 12:47 Hyaline Casts 25-50 /lpf (0-1) H 09/18/17 12:47 Urine Mucus 2+ /lpf (NONE-1+) H 09/18/17 12:47 Urine Glucose NEGATIVE (NEGATIVE) 09/18/17 12:47 Assessment & Plan Assessment: Abdominal pain - mostly RLQ. History of multiple abdominal surgeries raises suspicion for adhesions. CT imaging suggestive of ileus. Appendix poorly visualized (no oral contrast), but no obvious signs of appendicitis. WBC's normal. Afebrile. Currently pain free. -admit to observation status for bowel rest, make NPO with maintenance IVF's overnight -consider CT with oral contrast if RLQ pain / exam worsens or develops fever or rising wbc's -consider surgical consultation, which can likely be done as outpt if she continues to do well H/O endometriosis - s/p multiple laparoscopies and TLH-BSO BRCA positive s/p prophylactic b/l mastectomy Family h/o breast and ovarian cancer DVT PPLX - low risk, SCD's Full code Dispo - obs
[2017-09-18] MEDS: HYDROmorphONE/DILAUDID 1 MG/ML INJ IVP PRN ×2 (17:44→21:36)
[2017-09-18] MEDS: D5W NS 1,000 ML IV SCH (17:44)
[2017-09-18] MEDS: ESTROGENS,CONJUGATED 0.3 MG TAB PO SCH (20:37)
[2017-09-18] MEDS: DULoxetine 60 MG CAP PO SCH (20:38)
[2017-09-18] MEDS: MELATONIN 3 MG TAB PO SCH (20:38)
[2017-09-18] MEDS: traZODone 100 MG TAB PO SCH (20:39)
[2017-09-18] MEDS: ONDANSETRON DISINTEGRATING 4 MG TAB PO PRN (20:42)
[2017-09-18] MEDS: DOCUSATE SODIUM 100 MG CAP PO SCH ×2 (20:43→22:36)
[2017-09-18] MEDS: oxyCODONE IR 5 MG TAB PO PRN (23:00)
[2017-09-19] MEDS: oxyCODONE IR 5 MG TAB PO PRN ×6 (01:18→23:33)
[2017-09-19] MEDS: D5W NS 1,000 ML IV SCH ×2 (05:07→15:40)
[2017-09-19 05:32] LABS: PLATELET COUNT 212 10^3/uL (150-400)
--- NOTE | 2017-09-19 10:21 | ASMTCMCOM ---
CM Note CM Note Notes: Pt admitted to OBS status with abd ileus. Anticipate pt will have no DC needs. CM available if needs change. Date Signed: 09/19/2017 10:20 AM Electronically Signed By:Katy Johnson LCSW
[2017-09-19] MEDS: HYDROmorphONE/DILAUDID 1 MG/ML INJ IVP PRN ×2 (11:30→16:49)
[2017-09-19] MEDS ORDERED: HYDROmorphONE/DILAUDID 1 MG/ML INJ IVP ONE (13:06)
--- NOTE | 2017-09-19 16:20 | SOAPPROG ---
SOAP Progress Note Assessment/Plan: Assessment:Plan: see full dictated consult I think she does have an autoimmune process with her iritis, joint pains, and rashes IBD is in the differential as are vasculitis she did have a Rheumatology outpt eval recently but they didn't have any dx for her I will order a CRP and a fecal kiley-protectin She does need a repeat scope, try prep tonight we also should get her records from [facility] for her colon/egd and surgeries Hernan Talley MD 09/19/17 16:20 Objective: Vital Signs Temp Pulse Resp BP Pulse Ox 36.7 C 67 18 140/87 H 96 09/19/17 11:18 09/19/17 11:18 09/19/17 11:18 09/19/17 11:18 09/19/17 11:18 Laboratory Results 09/19/17 05:10 09/19/17 05:10 09/18/17 09/19/17 09/20/17 05:59 05:59 05:59 Intake Total 1300 Balance 1300 ICD10 Worksheet Patient Problems: Problems Problem Status Onset Abdominal pain Acute Ileus Acute
[2017-09-19] MEDS ORDERED: PEG 3350/NA SULF,BICARB,CL/KCL (GAVILYTE-G) 4000 ML BTL PO ONE (16:35)
--- NOTE | 2017-09-19 16:35 | HOSPPROG ---
Hospitalist Progress Note Assessment/Plan: 47 yo F with PMH of seronegative RA, endometriosis and now 6 weeks of severe abdominal pain # abdominal pain: has been severe, to the point where she has been to ER 4 x in the last 6 weeks and states she has been unable to get out of bed for the last [address] scan x 3 without clear etiology, most recently with ? of ileus and previously with constipation but otherwise benign. Has had some similar issues in the past but less severe worked up at [facility]. Has had egd/colonoscopy and ex laps as well as LOVE surgery. She had total hyst/BSOO as well. She states that despite these prior issues, this current issue is much worse. Appreciate GI consult, will eval for possible vasculitis/autoimmune process and likely for colonoscopy in am. # seronegative RA/iritis: she has not been on medication for this in the past, states that her inflammatory markers are always negative. As above. # endometriosis: with hx of 2 prior laparoscopic surgeries, unclear if currently contributing # BRCA + s/p ppx mastectomy # IP status, will need > 48 hours stay for eval/mgmt of above Patient new to my care. Old records reviewed/summarized as above. Care plan reviewed with GI. Further hx obtained from pts present at bedside. Subjective: no acute overnight events, patient notes pain continues to be very severe in RLQ Objective: Vital Signs Temp Pulse Resp BP Pulse Ox 36.7 C 67 18 140/87 H 96 09/19/17 11:18 09/19/17 11:18 09/19/17 11:18 09/19/17 11:18 09/19/17 11:18 Laboratory Results 09/19/17 05:10 09/19/17 05:10 09/18/17 09/19/17 09/20/17 05:59 05:59 05:59 Intake Total 1300 Balance 1300 awake alert mild distress anicteric op clear rrr no mrg cta b soft severe ttp rlq bs present no cce warm dry well perfused oriented appropriate ICD10 Worksheet Patient Problems: Problems Problem Status Onset Abdominal pain Acute Ileus Acute
--- NOTE | 2017-09-19 18:13 | GCON ---
[f rep st] CONSULTATION DATE OF CONSULTATION: 09/19/2017 REFERRING PHYSICIAN: Marissa López MD INDICATION FOR CONSULTATION: Abdominal pain, abnormal imaging study. HISTORY OF PRESENT ILLNESS: The patient is a pleasant 47-year-old female with past medical history s ignificant for endometriosis, status post hysterectomy who has had a number of weeks of abdominal sym ptoms. Interestingly, her GI symptoms date back a number of years, but improved after she had her hy sterectomy and significant fibroid had been attached to her intestines. When she underwent hysterect nikki and this "grapefruit sized cyst" was removed, her abdominal symptoms improved. Interestingly, fabienne also states that she gets episodes of iritis and distal symmetric arthritis associated with her GI symptoms. She describes abdominal bloating and distention, as well as her pain. She has some consti pation and takes milk of magnesia, Colace. She does have loose stools only when she takes the laxati ves. She recently was documented with constipation on CT scans, has been taking more laxative at [facility], and this may be the abnormality seen on CT scan. Currently, she has no blood in her stools. [facility] has been no significant weight loss. Her abdominal pain is usually right lower quadrant, does not radiate. She can get different skin rashes, along with iritis and the joint pains, and these seem to be associated with her GI symptoms. She has never had her rashes evaluated. There is family histor y of mother's cousin with some type of colitis. No celiac sprue. The episodes of iritis have dated back over 10 years. Over the last 6 weeks, she has had more intermittent abdominal pain and presente d to the emergency room on [address] scans obtained on each of those occasions . Her laboratory studies are essentially normal. There is no increase white blood cell count. She does have a mildly elevated liver enzyme on yesterday's labs. Because of these ongoing symptoms and right lower quadrant pain, abnormal CT scan, I am called to help evaluate in that regard. PAST MEDICAL HISTORY: Some mood disorder, possible rheumatoid arthritis, but had negative evaluation by Rheumatology recently. BRCA positive, had evaluation at [facility] for her genetic issues. PAST SURGICAL HISTORY: 2 laparoscopic surgeries for cleaning scar tissue. Then, she underwent a hys terectomy. She had a cholecystectomy. She does not think her appendix was removed at the time of hy sterectomy, but is not sure. She also had bilateral mastectomies. MEDICATIONS: At home, include trazodone, Cymbalta, Premarin, milk of magnesia, Colace, melatonin, an d she recently took some Mag citrate. ALLERGIES: No known drug allergies. SOCIAL HISTORY: She does not smoke. She quit alcohol in college. FAMILY HISTORY: No colon cancer. No colon polyps. There is mother's cousin with some type of colit is. She is not sure if it is truly inflammatory bowel disease or not. There is no history of celiac sprue. Maternal aunt from ovarian cancer and another aunt had breast cancer at young ages. REVIEW OF SYSTEMS: A complete review of systems performed is negative other than noted in the HPI. PHYSICAL EXAMINATION: GENERAL: Well developed, well nourished, sitting in bed, in no acute distress . VITAL SIGNS: Blood pressure is 140/87, pulse is 82, respirations are 18, pulse is 67, she is 96% sat on room air, temperature is 36.7. HEENT: Eyes: Anicteric. CAL. EOMI. Mouth: Moist mucous m embranes. NECK: Supple. No JVD. BACK: No spine tenderness. No CVA tenderness. LUNGS: Clear to auscultation. CARDIAC: S1, S2, regular rate and rhythm. No murmurs, rubs, or gallops appreciated. ABDOMEN: Bowel sounds are normal in pitch frequency. Soft with right lower quadrant discomfort. No right lower quadrant tenderness. No rebound or guarding. EXTREMITIES: No cyanosis, clubbing, or edema. NEUROLOGIC: Cranial nerves intact. Nonfocal. SKIN: No rashes are present. No stigmata o f advanced liver disease. LABORATORY/IMAGING DATA: Today: WBC 4.86, hemoglobin 13.7, hematocrit 41.1, platelet count 212, nor mal MCV and RDW. Sodium from today 142, potassium 4.2, chloride 110, bicarb 29, BUN 10, creatinine 0 .6, glucose 97, calcium 8.8. From yesterday, bilirubin 0.5, ALT mildly elevated at 57, AST normal at 30, alkaline phosphatase 57, total protein 6.7, albumin 4.1, lipase 73. From September 09, beta HCG was ne gative. On September 09, her liver enzymes are normal as they were on September 01. From May 06, 2017, C-reactive protein is less than 5. Sedimentation rate from March 06, 2017 was 5. Also from 2016, rheumatoid factor was less than 8.6, anti-cyclic citrullinated peptide was less than 15.6 . LORNA was less than 1:40. HLA-B27 was negative. UA from yesterday was normal, except that had trac e bacteria, 20-50 hyaline casts, as well as 2+ mucus. Abdominal CAT scan performed today and compared to CT scans from September 09 and September 01: Ileus with fluid-filled loops of small bowel and colon throughout. After I reviewed this with the radiologists, he asked if the patient has been taking laxatives, which she has so this may be related to the laxat jermain. There is no small-bowel obstruction, pneumoperitoneum. She has a prior cholecystectomy, bilat eral L5 spondylolysis and minimal grade 1 spondylolisthesis, normal pancreas, normal liver, normal ad renal glands. Of note, this was IV contrast and no oral contrast. September 09, 2017, CT scan: Worsening constipation. No bowel obstruction, diverticulitis, pneumoperitoneu m, prior cholecystectomy without focal fluid collection. CT scan from September 01, 2017, with IV, but no oral contrast: Constipation. No evidence of diverticul itis. Status post cholecystectomy. Intra and extrahepatic biliary duct dilatation can be seen post cholecystectomy. There was also mildly dilated pancreatic duct. No definite choledochal stone. MRC P could be performed for further evaluation if clinically warranted. ASSESSMENT: 1. Abdominal pain, right lower quadrant. 2. Abnormal imaging study. 3. History of iritis, joint pains, which could be consistent with arthritis of inflammatory bowel di sease. 4. Significant family history of cancer with BRCA gene positive, status post double mastectomy. 5. Mildly abnormal pancreatic duct at least on one of the imaging studies. I will review the subseq uent imaging studies with the radiologist again after I finish this consultation to see if they think biliary duct or pancreatic duct dilatation is still present. 6. History of endometriosis. RECOMMENDATIONS: 1. Obtain operative report from [facility]. 2. Obtain in the [facility] genetic consultations. 3. Prep for colonoscopy. 4. Consider repeat Rheumatology consult. 5. Check C-reactive protein and fecal calprotectin. 6. If pancreatic duct is dilated, then I definitely will order an MRI, MRCP. I would also consider an MRI of her small bowel pending my results of colonoscopy. 7. Further recommendations to follow the above and clinical course. 8. As I noted above, I think she has an autoimmune process with this intermittent iritis, symmetrica l distal joint pains, mouth sores, and rashes. Certainly some of her symptoms could be extraintestin al manifestations of Crohn disease, but there was no significant inflammation noted on CT scans; grimes david, they were done without oral contrast. She does have distant relative with a history of colitis. She also has significant family history of cancer with covering the BRCA gene, and if her pancreati c duct is dilated, she will need evaluation of her pancreas as well. If there is no evidence of infl ammatory bowel disease on my evaluation, then evaluation for other rheumatologic autoimmune processes would be warranted. Thank you for allowing me to participate in this patient's healthcare. Do not hesitate to call me wi th any questions. Copy requested to: Lo King /[id number]/MODL
[2017-09-19] MEDS: ONDANSETRON 4 MG/2 ML VIAL IVP PRN ×2 (19:48→23:36)
[2017-09-19] MEDS: traZODone 100 MG TAB PO SCH (21:04)
[2017-09-19] MEDS: ESTROGENS,CONJUGATED 0.3 MG TAB PO SCH (21:04)
[2017-09-19] MEDS: DOCUSATE SODIUM 100 MG CAP PO SCH (21:04)
[2017-09-19] MEDS: HYDROmorphone HCL/NS 0.5 MG/ML SYR IVP PRN (21:04)
[2017-09-19] MEDS: MELATONIN 3 MG TAB PO SCH (21:05)
[2017-09-19] MEDS: DULoxetine 60 MG CAP PO SCH (21:05)
[2017-09-20] MEDS: HYDROmorphone HCL/NS 0.5 MG/ML SYR IVP PRN ×4 (02:41→21:07)
[2017-09-20] MEDS: oxyCODONE IR 5 MG TAB PO PRN ×2 (05:12→08:46)
[2017-09-20 05:40] LABS: PLATELET COUNT 223 10^3/uL (150-400)
[2017-09-20] MEDS: ONDANSETRON DISINTEGRATING 4 MG TAB PO PRN (09:00)
[2017-09-20] MEDS: ACETAMINOPHEN 325 MG TAB PO PRN (10:08)
[2017-09-20] MEDS ORDERED: LR 1,000 ML IV ONE (10:55)
--- NOTE | 2017-09-20 11:44 | PDMN ---
Medical Necessity Medical necessity: Patient meets inpatient criteria per physician note and MCG M -200 Ileus (patient presents with worsening RLQ abd pain; abd CT shows ileus w/ fluid-filled loops of small bowel and colon; LOS > 2 midnights for ongoing IV hydration, initially NPO w/slow advance to liqs, IV antiemetics and pain control , further GI studies.)
[2017-09-20] MEDS ORDERED: HYDROmorphONE/DILAUDID 1 MG/ML INJ ONE ×2 (11:47→13:34)
[2017-09-20] MEDS ORDERED: HYDROmorphONE/DILAUDID 1 MG/ML INJ IVP PRN (12:00)
[2017-09-20] MEDS ORDERED: HYDROmorphONE/DILAUDID 2 MG/ML INJ IVP PRN (12:08)
[2017-09-20] MEDS ORDERED: ALBUTEROL 3 ML DEYVIAL IH PRN (12:08)
[2017-09-20] MEDS ORDERED: ONDANSETRON 4 MG/2 ML VIAL IVP PRN (12:08)
[2017-09-20] MEDS ORDERED: NALOXONE HCL 0.4 MG/ML INJ IVP PRN (12:08)
--- NOTE | 2017-09-20 12:11 | PDANEPAE ---
ANE History of Present Illness Colonoscopy ANE Past Medical History - Cardiovascular History Hx Hypertension: No Hx Arrhythmias: No Hx Chest Pain: No - Pulmonary History Hx COPD: No Hx Asthma/Reactive Airway Disease: No Hx Oxygen in Use at Home: No Hx Sleep Apnea: No Sleep Apnea Screening Result - Last Documented: Positive - Endocrine History Hx Diabetes: No ANE Review of Systems Review of systems is: negative Review of Systems: - Exercise capacity Exercise capacity: >=4 METS ANE Patient History - Allergies Allergies/Adverse Reactions: No Known Allergies Allergy (Verified 09/18/17 11:53) - Home Medications Home Medications: DULoxetine [Cymbalta 60 MG (*)] 60 mg PO HS 09/18/17 [Last Taken 09/17/17] Docusate Sodium [Colace 100 MG (*)] 400 mg PO HS 09/18/17 [Last Taken Unknown] Estrogens,Conjugated [Premarin 0.3 MG (*)] 0.3 mg PO HS 09/18/17 [Last Taken ] Magnesium Hydroxide [Milk of Magnesia] 2,400 mg PO DAILY PRN 09/18/17 [Last Taken Unknown] Melatonin [Melatonin 3 MG (*)] 3 mg PO HS 09/18/17 [Last Taken Unknown] Naproxen Sodium [Aleve 220 MG (*)] 440 mg PO DAILY PRN 09/18/17 [Last Taken Unknown] traZODone [traZODONE 100MG (*)] 100 mg PO HS 09/18/17 [Last Taken Unknown] - NPO status NPO Since - Liquids (Date): 09/20/17 NPO Since - Liquids (Time): 08:00 NPO Since - Solids (Date): 09/19/17 NPO Since - Solids (Time): 00:00 - Smoking Hx Smoking Status: Never smoked - Alcohol Use Alcohol Use: None ANE Labs/Vital Signs - Labs Result Diagrams: 09/20/17 04:59 09/20/17 04:59 - Vital Signs Blood Pressure: 138/65 Heart Rate: 55 Respiratory Rate: 15 O2 Sat (%): 95 Height: 165 cm Weight: 56.7 kg ANE Physical Exam - Airway Neck exam: FROM Mallampati Score: Class 2 Mouth exam: normal dental/mouth exam - Pulmonary Pulmonary: clear to auscultation - Cardiovascular Cardiovascular: regular rate and rhythym - ASA Status ASA Status: II ANE Anesthesia Plan Anesthesia Plan: GA with mask
[2017-09-20] MEDS ORDERED: PROPOFOL/EMULSION 500 MG/50 ML BOTTLE IV ONE (12:29)
[2017-09-20] MEDS ORDERED: PROPOFOL 200 MG/20 ML VIAL ONE (12:35)
[2017-09-20] MEDS ORDERED: LIDOCAINE 2% 5 ML SDV ONE (12:37)
--- NOTE | 2017-09-20 13:10 | POSTANESTH ---
Post Anesthetic Evaluation Cardiovascular Status: Normal, Stable Respiratory Status: Normal, Stable Level of Consciousness/Mental Status: Can Participate in Eval, Mildly Sleepy, Arousable Pain Control: Adequate, Prn Tx Ordered Nausea/Vomiting Control: Adequate, Prn Tx Ordered Complications Possibly Related to Anesthesia: None Noted
--- NOTE | 2017-09-20 13:12 | GIREPORT ---
[facility] - Endoscopy Department Patient Name: Sondra Bennett Procedure Date: 09/20/2017 12:21 PM Patient Type: Inpatient Attending MD/ ER Physician: Carlyle Cabrera Procedure: Colonoscopy Indications: Abdominal pain in the right lower quadrant, Clinically significant diar christian of unexplained origin, Abnormal CT of the GI tract Providers: Sae Talley MD Medicines: Total IV Anesthesia (TIVA) = IV general w/o airway Complications: No immediate complications. Estimated blood loss: Minimal. Description of Procedure: After obtaining informed consent, the scope was passed under direct vis ion. Throughout the procedure, the patient's blood pressure, pulse, and oxyg en saturations were monitored continuously. The Colonoscope with irrigatio n channel was introduced through the anus and advanced to 20 cm into the ileum. The colonoscopy was performed without difficulty. The patient tolerated the procedure well. The quality of the bowel preparation was good. Findings: The digital rectal exam was normal. The terminal ileum appeared normal. The colon (entire examined portion) appeared normal. Biopsies for histo logy were taken with a cold forceps from the cecum, ascending colon, transve rse colon, descending colon and sigmoid colon for evaluation of microscopic colitis. Estimated blood loss was minimal. The exam was otherwise without abnormality. Estimated Blood Loss: Estimated blood loss was minimal. Post Op Diagnosis: - The examined portion of the ileum was normal. - The entire examined colon is normal. Biopsied. - The examination was otherwise normal. Recommendation: - Await pathology results. - My office will call with the pathology result with 5-7 days. If you h ave not heard from my office by 12-14, do not assume the pathology is sintia l, please call [phone] to get the pathology results. - Repeat colonoscopy in 10 years for screening purposes. - Advance diet as tolerated. - Return patient to [facility] for ongoing care. - Consider a Rheumatology consultation - Consider Xifaxan 550mg PO TID for 14 days. - Continue present medications. - Thank you for allowing me to help in your patient's care. Do not [place] to call with any questions. Attending Participation: I personally performed the entire procedure. Gerri Quevedo M.D Sae Talley MD 09/20/2017 1:11:52 PM This report has been signed electronicallyMatheuesebio Talley MD Number of Addenda: 0 Note Initiated On: 09/20/2017 12:21 PM Total Procedure Duration Time 0 hours 18 minutes 48 seconds [email or web address]
[2017-09-20] MEDS ORDERED: ONDANSETRON 4 MG/2 ML VIAL ONE (13:34)
--- NOTE | 2017-09-20 15:06 | HOSPPROG ---
Hospitalist Progress Note Assessment/Plan: 47 yo F with PMH of seronegative RA, endometriosis and now 6 weeks of severe abdominal pain # abdominal pain: continues to be severe and to the point where patient has been bed bound x 6 weeks. In setting of joint sxs, rash, iritis and concerning for autoimmune process but inflammatory markers, LORNA, RF all negative. Colonoscopy performed today reportedly negative (report pending). Will likely get MRI as next step in w/u but will discuss with GI. Fecal Calprotectin pending. Continues to require relatively high dose IV opioids to control pain. # seronegative RA/iritis: she has not been on medication for this in the past, states that her inflammatory markers are always negative. As above. # endometriosis: with hx of 2 prior laparoscopic surgeries, unclear if currently contributing # BRCA + s/p ppx mastectomy # IP status, will need > 48 hours stay for eval/mgmt of above, high risk requiring IV opiates Further hx obtained from pts present at bedside. Subjective: s/p colonoscopy this am, pain continues to be severe and localized to rlq Objective: Vital Signs Temp Pulse Resp BP Pulse Ox 36.9 C 55 L 17 132/81 H 97 09/20/17 13:49 09/20/17 12:11 09/20/17 13:45 09/20/17 13:21 09/20/17 13:45 Laboratory Results 09/20/17 04:59 09/20/17 04:59 09/19/17 09/20/17 09/21/17 05:59 05:59 05:59 Intake Total 1300 2400 800 Output Total 300 0 Balance 1300 2100 800 awake alert mild distress anicteric op clear rrr no mrg cta b soft severe ttp rlq bs present no cce warm dry well perfused oriented appropriate - Time Spent With Patient Time Spent with Patient: greater than 35 minutes Time Spent with Patient: Greater than 35 minutes spent on this patients care, greater than 50% of time spent counseling, educating, and coordinating care regarding the above mentioned plan. ICD10 Worksheet Patient Problems: Problems Problem Status Onset Abdominal pain Acute Ileus Acute
[2017-09-20] MEDS: ESTROGENS,CONJUGATED 0.3 MG TAB PO SCH (21:06)
[2017-09-20] MEDS: traZODone 100 MG TAB PO SCH (21:06)
[2017-09-20] MEDS: DULoxetine 60 MG CAP PO SCH (21:06)
[2017-09-20] MEDS: MELATONIN 3 MG TAB PO SCH (21:06)
[2017-09-21] MEDS: HYDROmorphone HCL/NS 0.5 MG/ML SYR IVP PRN ×5 (00:31→22:56)
[2017-09-21] MEDS: oxyCODONE IR 5 MG TAB PO PRN ×2 (09:14→13:23)
[2017-09-21] MEDS ORDERED: predniSONE 20 MG TAB PO SCH ×3 (09:30→14:44)
[2017-09-21] MEDS ORDERED: predniSONE 20 MG TAB PO ONE (10:43)
--- NOTE | 2017-09-21 12:05 | ASMTCMCOM ---
CM Note CM Note Notes: Reviewed chart and discussed w/RN and hospitalist. Pt continies to need IV pain meds and still being worked up. She will likely be independant at dc once medically stable but CM will follow in case dc needs arise. Date Signed: 09/21/2017 12:04 PM Electronically Signed By:Terri Blancas RN
[2017-09-21] MEDS: ACETAMINOPHEN 325 MG TAB PO PRN (13:22)
[2017-09-21] MEDS: predniSONE 20 MG TAB PO SCH (14:53)
[2017-09-21] MEDS: HYDROmorphONE/DILAUDID 2 MG TAB PO PRN ×2 (15:37→19:39)
--- NOTE | 2017-09-21 16:59 | HOSPPROG ---
Hospitalist Progress Note Assessment/Plan: 47 yo F with PMH of seronegative RA, endometriosis and now 6 weeks of severe abdominal pain # abdominal pain: continues to be severe and to the point where patient has been bed bound x 6 weeks. In setting of joint sxs, rash, iritis and concerning for autoimmune process but inflammatory markers, LORNA, RF all negative. Colonoscopy negative. Reviewed imaging utility with radiology, unlikely to sweet pickle maker on vasculitis. Discssued case with Ayan Petit, recommends ANCA, chest XR to r/o e/o granulomatous disease and course of prednisone. Further hx obtained from patient today who acknowledged that she has had this issue in the past, and was previously on as much as 400mg of morphine daily. Query if this is largely functional in nature, has been on high doses of dilaudid in the last several days again. Dwayne is available this weekend if further issues come up or if no improvement on steroids. # seronegative RA/iritis: she has not been on medication for this in the past, states that her inflammatory markers are always negative. As above. # endometriosis: with hx of 2 prior laparoscopic surgeries, unclear if currently contributing # BRCA + s/p ppx mastectomy # IP status, will need > 48 hours stay for eval/mgmt of above, high risk requiring IV opiates Care plan reviewed with rheumatology, GI present at bedside. Subjective: no acute overnight evetns, patient states that if she does not get pain meds right when they are due her pain is immediately very high Objective: Vital Signs Temp Pulse Resp BP Pulse Ox 36.6 C 68 16 123/82 H 96 09/21/17 16:00 09/21/17 16:00 09/21/17 16:00 09/21/17 16:00 09/21/17 16:00 Laboratory Results 09/20/17 04:59 09/20/17 04:59 09/20/17 09/21/17 09/22/17 05:59 05:59 05:59 Intake Total 2400 3651 500 Output Total 300 0 Balance 2100 3651 500 awake alert mild distress anicteric op clear rrr no mrg cta b soft severe ttp rlq bs present no cce warm dry well perfused oriented appropriate tearful ICD10 Worksheet Patient Problems: Problems Problem Status Onset Abdominal pain Acute Ileus Acute
[2017-09-21] MEDS: CARBOXYMETHYLCELLULOSE 1% 0.4 ML DROPERETTE EACHEYE PRN (17:50)
[2017-09-21] MEDS: DOCUSATE SODIUM 100 MG CAP PO SCH (21:03)
[2017-09-21] MEDS: ESTROGENS,CONJUGATED 0.3 MG TAB PO SCH (21:03)
[2017-09-21] MEDS: traZODone 100 MG TAB PO SCH (21:04)
[2017-09-21] MEDS: DULoxetine 60 MG CAP PO SCH (21:04)
[2017-09-21] MEDS: MELATONIN 3 MG TAB PO SCH (21:04)
[2017-09-22] MEDS: HYDROmorphONE/DILAUDID 2 MG TAB PO PRN ×4 (05:29→18:52)
--- NOTE | 2017-09-22 06:55 | SOAPPROG ---
FAY Progress Note Assessment/Plan: Assessment:Plan seen yesterday late afternoon 1) abdo pain - normal colonoscopy and into terminal ileum, bx pending, says has done well in past with steroids. 2) Rheum - spoke to them, wanted outpt f/u rec'd pred 60 3 days rapid taper I still feel her GI sx's are possible from an autoimmune issue discussed wtih Dr. Ortiz at bedside Will sign off for now 09/22/17 06:55 Subjective: cc- RLQ pain still has pain, tolerating regular diet says her iritis is starting to act up Objective: Vital Signs Temp Pulse Resp BP Pulse Ox 36.8 C 66 14 121/85 H 96 09/22/17 05:16 09/22/17 05:16 09/22/17 05:16 09/22/17 05:16 09/22/17 05:16 Laboratory Results 09/20/17 04:59 09/20/17 04:59 09/21/17 09/22/17 09/23/17 05:59 05:59 05:59 Intake Total 3651 3550 Output Total 0 Balance 3651 3550 CTA S1S2 +BS, soft some tenderness no r/g ICD10 Worksheet Patient Problems: Problems Problem Status Onset Abdominal pain Acute Ileus Acute
[2017-09-22] MEDS: predniSONE 20 MG TAB PO SCH (09:57)
[2017-09-22] MEDS: HYDROmorphone HCL/NS 0.5 MG/ML SYR IVP PRN ×2 (11:29→13:38)
[2017-09-22 14:44] LABS: CREATINE KINASE 87 IU/L (0-156)
[2017-09-22] MEDS ORDERED: HYDROmorphone HCL/NS 0.5 MG/ML SYR IVP PRN (15:31)
--- NOTE | 2017-09-22 15:37 | HOSPPROG ---
Hospitalist Progress Note Assessment/Plan: Subjective Follow-up on right lower quadrant abdominal pain The patient reports no major change in her abdominal pain since starting prednisone. No report of any fevers or chills. No nausea or vomiting. We reviewed that her repeat liver enzymes were mildly elevated that we be repeated in today. No complaints of right upper quadrant pain. She has had cholecystectomy done in the past. Objective Vital Signs temperature 36.7 blood pressure is 135/91 heart rate 69 respirations 16 satting 98% on room air Physical exam General-patient is sitting upright in bed awake alert conversant no acute distress. Heart-regular rate and rhythm no murmurs Lungs-Clear to auscultation with normal respiratory effort Abdomen-nondistended bowel sounds are slightly hyperactive. No major pain with mild palpation throughout the abdomen. -no Aguilera catheter in place Extremities-no significant pitting edema Labs as detailed below Assessment and plan 1. Abdominal pain-uncertain etiology but with her apparent history of seronegative rheumatoid arthritis we are suspecting possibly an autoimmune etiology and she has been started on prednisone 60 mg daily. I would not rule the possibility of irritable bowel syndrome. 2. Transaminitis-will repeat liver enzymes today. 3. Rheumatoid arthritis-patient has been apparently been diagnosed with seronegative rheumatoid arthritis in the past. She has consulted with rheumatology. 4. History of endometriosis-this could be playing a role as well into her current symptoms. 5. BRCA positive-patient is status post mastectomy and bilateral salpingo- oophorectomy 6. DVT prophylaxis- relatively lower risk. Compression devices while in bed 7. Disposition-anticipate she will be able to return home once ready for discharge. Objective: Vital Signs Temp Pulse Resp BP Pulse Ox 36.7 C 69 16 135/91 H 98 09/22/17 10:50 09/22/17 10:50 09/22/17 10:50 09/22/17 10:50 09/22/17 10:50 Laboratory Results 09/20/17 04:59 09/22/17 14:00 09/21/17 09/22/17 09/23/17 05:59 05:59 05:59 Intake Total 3651 3550 Output Total 0 Balance 3651 3550 ICD10 Worksheet Patient Problems: Problems Problem Status Onset Abdominal pain Acute Ileus Acute
[2017-09-22] MEDS: CARBOXYMETHYLCELLULOSE 1% 0.4 ML DROPERETTE EACHEYE PRN (18:18)
[2017-09-22] MEDS: DOCUSATE SODIUM 100 MG CAP PO SCH (20:48)
[2017-09-22] MEDS: MELATONIN 3 MG TAB PO SCH (20:48)
[2017-09-22] MEDS: traZODone 100 MG TAB PO SCH (20:48)
[2017-09-22] MEDS: ESTROGENS,CONJUGATED 0.3 MG TAB PO SCH (20:48)
[2017-09-22] MEDS: DULoxetine 60 MG CAP PO SCH (20:48)
[2017-09-23] MEDS: HYDROmorphONE/DILAUDID 2 MG TAB PO PRN ×2 (05:02→09:54)
[2017-09-23] MEDS: predniSONE 20 MG TAB PO SCH (09:53)
[2017-09-23] MEDS: ACETAMINOPHEN 325 MG TAB PO PRN (09:54)
[2017-09-23] MEDS: CARBOXYMETHYLCELLULOSE 1% 0.4 ML DROPERETTE EACHEYE PRN (09:56)
[2017-09-23] MEDS ORDERED: BISACODYL 10 MG SUPP PR PRN (10:03)
[2017-09-23 11:50] VITALS: BP 146/75
--- NOTE | 2017-09-23 11:54 | ASMTLACE ---
JADEE Length of stay for Answers: 4-6 days current admission Acuity / Level of Answers: Yes Care: Did the patient have an inpatient admission? Comorbidities - select Answers: Other Notes: Ileus all that apply # of Emergency department Answers: 3-4 visits in the last 6 months Score: 11 Date Signed: 09/23/2017 11:51 AM Electronically Signed By:Dhara Wright RN
--- NOTE | 2017-09-23 11:54 | ASMTCMCOM ---
CM Note CM Note Notes: Chart reviewed. Per medicine, medically cleared for discharge to home. No needs identified. CM available should needs arise. Plan : Home independent Date Signed: 09/23/2017 11:53 AM Electronically Signed By:Dhara Wright RN
--- NOTE | 2017-09-23 12:58 | GDS ---
[f rep st] DISCHARGE SUMMARY PRIMARY CARE PROVIDER: The patient is to establish care with Dr. Rand Toro. IN-HOSPITAL CONSULTANTS: Dr. Hernan Talley, Gastroenterology. DISCHARGE DIAGNOSES: 1. Abdominal pain. 2. History of endometriosis. 3. History of irritable bowel syndrome next. HISTORY OF PRESENT ILLNESS: The patient is a 47-year-old female, with past medical history of anxiet y, endometriosis, and irritable bowel syndrome, [facility], after worsening abdominal pain. Her pain was localized primarily in the [facility] lower quadrant. She had a CT scan performed, which did not show any evidence of appendicitis, bu t did show evidence of an ileus with fluid-filled loops of small bowel and colon throughout. There w as no evidence of obstruction or pneumoperitoneum. She was not having any nausea or vomiting. Abdom inal x-ray performed did show as well edematous loops of small bowel, which is primarily localized in the right flank, which did correspond with the area where she was having some discomfort. Possible enteritis was the final impression. To further evaluate her symptoms, she underwent a colonoscopy. Biopsy results from this are normal. There is no evidence of colitis seen. The patient has a history of iritis and she has had a prior rheumatologic consult with Dr. King. Th e blood workup was apparently negative, but she had been on a steroid taper for her symptoms in the p ast, which did significantly improve her joint symptoms. We did review the case with Rheumatology, a nd ultimately, it was decided to try a prednisone taper to see if this would actually help with her s ymptoms. Fortunately, today on the day of discharge when I went into see her, she was feeling much b jorje fully dressed, and stated that she was ready to go home, and was comfortable with outpatient [facility] at this point in time. I did review her blood work and imaging studies with her, including a normal CRP level, which overall was quite reassuring. HOSPITAL COURSE: 1. Abdominal pain: Possibly related to ileus; however, she was not having any significant nausea or vomiting. She is not having any diarrhea either to suggest infectious etiology. The possibility of an autoimmune etiology was considered and she was started on prednisone. After 2 doses of prednison e at 60 mg daily, clinically, she has improved. She also does have a history of irritable bowel synd viky, which could be playing a role in her symptoms as well. She does have a followup visit with Dr. Rand Toro this coming Sunday to establish care. This will be helpful to reassess her symptoms and make a determination on the need for a GI consultation and possibly also followup with Rheumatol fransisco. She has seen Dr. King in the past as well more for joint symptoms, however. 2. Transaminitis: She did have a mild elevation of her liver enzymes into the 100s. These were jimmy nding down and normalizing on repeat. No complaints of right upper quadrant pain. 3. Inflammatory arthritis: Possibly seronegative rheumatoid arthritis or reactive arthritis, per re view of records. 4. History of endometriosis: This certainly could be playing a role in some of her symptoms as well . She states that she has scheduled a followup gynecology visit as well in approximately 1 months' t dani. 5. BRCA positive. Patient is status post bilateral mastectomy and bilateral salpingo-oophorectomy a s well. 6. Deep venous thrombosis prophylaxis: Compression devices used while she was here in the hospital. DISPOSITION: She appears stable for return home. PHYSICAL EXAMINATION: VITAL SIGNS: On day of discharge, temperature 36.7, blood pressure 116/82, he art rate 67, respirations 14, saturating 97% on room air. GENERAL: The patient was standing in her room, fully dressed, looking out of the window, awake, alert, conversant, in no acute distress. HEAR T: Regular rate and rhythm. No murmurs. LUNGS: Clear to auscultation with normal respiratory effo rt. ABDOMEN: Nondistended. Bowel sounds normal. No rebound tenderness or withdrawal with abdomina l palpation. : No Aguilera catheter in place. EXTREMITIES: No significant pitting edema. NOTABLE STUDIES: Imaging as detailed in the HPI. White blood cell count 4, hemoglobin 13, platelets 223. Sodium is 142, potassium 4.2, chloride 104, bicarb 31, BUN 7, creatinine 0.5, glucose 103. AST was 137 and trended downward to 36, ALT 169, tren ded downward to 94, alkaline phosphatase normal at 63. C-reactive protein was less than 5. Urinalysis negative. Proteinase-3 undetectable. Myeloperoxidase antibody undetectable. DISCHARGE MEDICATIONS: 1. Prednisone 10 mg capsules 5 capsules daily x1 day, then 4 capsules daily x1 day, then 3 capsules daily x1 day, then 2 capsules daily x1 day, then 1 capsule daily x1 day, then stop. 2. Premarin 0.3 mg nightly. 3. Naproxen 220 mg daily as needed. 4. Melatonin 3 mg nightly. 5. Trazodone 10 mg nightly. 6. Duloxetine 60 mg nightly. 7. Colace 400 mg nightly. DISCHARGE INSTRUCTIONS: The patient has a scheduled visit already with Dr. Rand Toro to [facility] and discuss her ongoing abdominal symptoms. Forty minutes of time dedicated to discharge efforts. /[id number]/MODL
== END 2017-09-23 13:04 | disposition home or self-care (01) | DRG 390 ==
LOC: OBSVTOIN 15:26 → F1N 16:52
PROVIDERS: ADMIT Hospitalist; ATTEND Hospitalist
DX: K56.7 Ileus, unspecified (principal); K58.9 Irritable bowel syndrome, unspecified; R74.0 Nonspecific elevation of levels of transaminase and lactic acid dehydrogenase [LDH]; M06.00 Rheumatoid arthritis without rheumatoid factor, unspecified site; Z15.01 Genetic susceptibility to malignant neoplasm of breast; Z90.13 Acquired absence of bilateral breasts and nipples; Z90.722 Acquired absence of ovaries, bilateral; Z80.3 Family history of malignant neoplasm of breast; Z80.41 Family history of malignant neoplasm of ovary
CPT/HCPCS: 83516-90; 83520-90; 96374; G0378; J1170; J2405; J2704; J7512; Q9967

== ENCOUNTER → 2017-10-16 | Outpatient (CLI) | payer BC | LOC: BMCIMAGING 14:40 | PROVIDERS: ATTEND Internal Medicine Rheumatology | DX: M53.3 Sacrococcygeal disorders, not elsewhere classified (principal); M51.37 Other intervertebral disc degeneration, lumbosacral region; M79.641 Pain in right hand; M79.642 Pain in left hand ==

== ENCOUNTER → 2018-02-08 | Day surgery (SDC) | payer BC ==
[~2018-02-08] MED LIST: ALBUTEROL 3 ML DEYVIAL IH PRN; BISACODYL 10 MG SUPP PR PRN; BUPIVACAINE 0.5% 30 ML SDV ONE; DEXAMETHASONE 4 MG/ML VIAL ONE; DIAZEPAM 5 MG/ML 1 ML SYR IVP PRN; DOCUSATE SODIUM 100 MG CAP PO PRN; DULoxetine 60 MG CAP PO SCH; ESTROGENS,CONJUGATED 0.3 MG TAB PO SCH; HYDROmorphONE/DILAUDID 2 MG TAB PO PRN; HYDROmorphONE/DILAUDID 2 MG/ML INJ IVP PRN; HYDROmorphONE/DILAUDID 2 MG/ML INJ ONE; KETOROLAC 30 MG/1 ML SDV ONE; LABETALOL HCL 5 MG/ML 20 ML MDV IVP PRN; LACTULOSE 20 GM/30 ML UDCUP PO PRN; LIDOCAINE 1% 2 ML INJ ID PRN; LIDOCAINE 1% 2 ML INJ ONE; LIDOCAINE 2% 2 ML INJ ONE; LR 1,000 ML IV ONE; MAGNESIUM HYDROXIDE 30 ML UDCUP PO PRN; MELATONIN 3 MG TAB PO SCH; MIDAZOLAM 2 MG/2 ML VIAL IVP ONE; MIDAZOLAM 2 MG/2 ML VIAL ONE; NALOXONE HCL 0.4 MG/ML INJ IVP PRN; NAPROXEN SODIUM 220 MG TAB PO PRN; NS 500 ML IV PRN; ONDANSETRON 4 MG/2 ML VIAL IVP PRN; ONDANSETRON 4 MG/2 ML VIAL ONE; POLYETHYLENE GLYCOL 3350 17 GM PKT PO PRN; PROMETHAZINE HCL 25 MG/ML INJ IVP PRN; PROPOFOL 200 MG/20 ML VIAL ONE; ROCURONIUM 50 MG/5 ML VIAL ONE; SUGAMMADEX SODIUM 200 MG/2 ML VIAL IVP ONE; ceFAZolin 2 GM/DEXTROSE 100 ML IV ONE; fentaNYL 100 MCG/2 ML INJ ONE; traZODone 100 MG TAB PO SCH
--- NOTE | 2018-02-08 07:19 | PDHPUP ---
History & Physical Update H&P update statement: This history and physical update is based on an assessment of the patient which was completed after admission or registration (within 24 hours), but prior to the surgery/procedure. H&P update: H&P reviewed & patient examined, changes noted (Pain worse pointing to posterior leg and hip and states it is where she has a bowel movement)
--- NOTE | 2018-02-08 08:33 | PDANEPAE ---
ANE History of Present Illness exp lap ANE Past Medical History - Cardiovascular History Hx Hypertension: No Hx Arrhythmias: No Hx Chest Pain: No Hx Coronary Artery / Peripheral Vascular Disease: No Hx CHF / Valvular Disease: No Hx Palpitations: No - Pulmonary History Hx COPD: No Hx Asthma/Reactive Airway Disease: No Hx Recent Upper Respiratory Infection: No Hx Oxygen in Use at Home: No Hx Sleep Apnea: No Sleep Apnea Screening Result - Last Documented: Negative - Neurologic History Hx Cerebrovascular Accident: No Hx Seizures: No Hx Dementia: No - Endocrine History Hx Diabetes: No Hypothyroid: No Hyperthyroid: No Obesity: no - Renal History Hx Renal Disorders: No - Liver History Hx Hepatic Disorders: No - Neurological & Psychiatric Hx Hx Neurological and Psychiatric Disorders: Yes Neurological / Psychiatric History Comment: anxiety. depression - Cancer History Hx Cancer: No - Congenital Disorder History Hx Congenital Disorders: No - GI History GERD: mild Hx Gastrointestinal Disorders: Yes Gastrointestinal History Comment: constipation. reflux. hx of colonoscopy when admitted 09/2017 - Other Health History Other Health History: poss RA - Chronic Pain History Chronic Pain: Yes (generalized/ fibromyalgia pain) - Surgical History Prior Surgeries: 09/20/17 colonoscopy with [place]. tonsillectomy. ysabel. endometriosis excision x2. complete hysterectomy ANE Review of Systems Review of Systems: - Exercise capacity Exercise capacity: >=4 METS METS (RN): 4 METS ANE Patient History - Allergies Allergies/Adverse Reactions: No Known Allergies Allergy (Verified 02/07/18 16:06) - Home Medications Home medications: home medication list seen and reviewed Home Medications: DULoxetine [Cymbalta 60 MG (*)] 120 mg PO HS 09/18/17 [Last Taken 09/17/17] Docusate Sodium [Colace 100 MG (*)] 200 mg PO BID PRN 09/18/17 [Last Taken Unknown] Estrogens,Conjugated [Premarin 0.3 MG (*)] 0.3 mg PO HS 09/18/17 [Last Taken ] Melatonin [Melatonin 3 MG (*)] 3 mg PO HS 09/18/17 [Last Taken Unknown] Naproxen Sodium [Aleve 220 MG (*)] 440 mg PO DAILY PRN 09/18/17 [Last Taken 08/22] traZODone [traZODONE 100MG (*)] 100 mg PO HS 09/18/17 [Last Taken Unknown] - NPO status NPO Status: no food or drink >8 hours NPO Since - Liquids (Date): 02/08/18 NPO Since - Liquids (Time): 05:00 NPO Since - Solids (Date): 02/07/18 NPO Since - Solids (Time): 23:00 - Anes Hx Anes Hx: no prior problems - Smoking Hx Smoking Status: Never smoked - Family Anes Hx Family Hx Anesthesia Complications: none ANE Labs/Vital Signs - Vital Signs Blood Pressure: 98/75 Heart Rate: 84 Respiratory Rate: 16 O2 Sat (%): 96 Height: 165.1 cm Weight: 57.606 kg ANE Physical Exam - Airway Mallampati Score: Class 2 Mouth exam: normal dental/mouth exam - Pulmonary Pulmonary: no respiratory distress - Cardiovascular Cardiovascular: regular rate and rhythym - ASA Status ASA Status: II ANE Anesthesia Plan Anesthesia Plan: general endotracheal anesthesia
--- NOTE | 2018-02-08 09:24 | POSTOPPROG ---
Post Op Note Date of Operation: 02/08/18 Surgeon: Sylwia hSah Certified Prosthetist/Orthotist: bladimir Anesthesiologist: yamileth Anesthesia: GET(General Endotracheal) Pre-op Diagnosis: RLQ pain Post-op Diagnosis: injected appendix Indication: 48 yo with RLQ pain Procedure: diagnostic laparoscopy and lap appy Findings: injected appendix Inf/Abcess present in the surg proc area at time of surgery?: No Depth: Superfical (Skin SQ) EBL: Minimal Specimen(s): appendix
--- NOTE | 2018-02-08 09:36 | POSTANESTH ---
Post Anesthetic Evaluation Cardiovascular Status: Normal, Stable Respiratory Status: Normal, Stable Level of Consciousness/Mental Status: Can Participate in Eval Pain Control: Adequate, Prn Tx Ordered Nausea/Vomiting Control: Adequate, Prn Tx Ordered Complications Possibly Related to Anesthesia: None Noted
[2018-02-08] MEDS: fentaNYL 100 MCG/2 ML INJ IVP PRN ×2 (09:58→10:08)
--- NOTE | 2018-02-08 11:08 | GOP ---
DATE OF OPERATION: 02/08/2018 SURGEON: Sylwia Shah MD CAKE BATTER MIXER: Jolene Santiago, RADHA. ANESTHESIA: General. ANESTHESIOLOGIST: Cody Love MD. PREOPERATIVE DIAGNOSIS: Right lower quadrant abdominal pain. POSTOPERATIVE DIAGNOSIS: Right lower quadrant abdominal pain. PROCEDURE PERFORMED: Diagnostic laparoscopy with laparoscopic appendectomy. FINDINGS: No adhesions, redundant colon, injected appendix that was tethered. SPECIMENS: Appendix. ESTIMATED BLOOD LOSS: 5 cc. INDICATIONS: The patient is a 48-year-old woman with history of endometriosis and severe constipatio n. She continues to have right lower quadrant pain and is concerned that adhesions could be related. DESCRIPTION OF PROCEDURE: Patient was brought into the operating room, placed supine on the table an d general anesthesia was administered. Her abdomen was prepped and draped in the usual sterile fashi on. I infiltrated all sites with 0.5% Marcaine prior to making incisions. I made an incision by her umbilicus. I elevated it. I inserted the Veress needle. It passed the hanging drop test. Her abd omen insufflated easily to a pressure of 15 mmHg. I placed a 5 mm camera with a trocar at this site. There were no injuries from Veress needle placement. She was placed in steep Trendelenburg positio n to remove all the bowel from her pelvis and there were no abnormalities noted. No endometriosis no yash. She does have a redundant colon. There were no adhesions. Her appendix did seem slightly teth ered in the right lower quadrant and injected. I proceeded with laparoscopic appendectomy. I divide d the mesoappendix with the Harmonic. I divided the base with an Endo-JEEVAN 45 white load. I removed the appendix. I had placed an additional 2 trocars, 1 at the suprapubic region and 1 in between the 1st and 2nd trocars under direct vision. The abdomen was explored. The abdomen was allowed to desuf flate. Trocars removed under direct vision. The fascia at the 10 mm trocar site closed with 0 Vicry l, skin closed with 4-0 Monocryl, Dermabond applied. She was awakened in the operating room, extubat ed, transferred to PACU in stable condition. /[id number]/MODL
[2018-02-08 11:16] VITALS: BP 121/77
== END ==
LOC: FSGY 06:51 → F3E 06:51 → UNDOADMOB 06:51 → EDSTATUS 08:30 → UNDODISOB 11:16
PROVIDERS: ATTEND Surgery
PROC: 0DTJ4ZZ Resection of Appendix, Percutaneous Endoscopic Approach (ICD-10-PCS; principal; 2018-02-08 08:30)
DX: R10.31 Right lower quadrant pain (principal); K59.00 Constipation, unspecified; Q43.8 Other specified congenital malformations of intestine; Z90.13 Acquired absence of bilateral breasts and nipples; Z90.710 Acquired absence of both cervix and uterus; Z90.722 Acquired absence of ovaries, bilateral; Z15.01 Genetic susceptibility to malignant neoplasm of breast; Z80.41 Family history of malignant neoplasm of ovary
CPT/HCPCS: J0690; J1100; J1170; J1885; J2250; J2405; J2704; J3010

== ENCOUNTER 2018-04-23 12:08 | Emergency (ER) | payer BC ==
[2018-04-23] MEDS ORDERED: NS 1,000 ML IV ONE (12:28)
[2018-04-23 12:39] LABS: PLATELET COUNT 245 10^3/uL (150-400)
[2018-04-23] MEDS ORDERED: HYDROmorphONE/DILAUDID 2 MG/ML INJ IVP ONE (13:09)
[2018-04-23] MEDS ORDERED: IOPAMIDOL (ISOVUE-300) 100 ML BTL ONE (13:15)
--- NOTE | 2018-04-23 13:16 | EDPHY ---
HPI/HX/ROS/PE/MDM - Data Points Imaging: Discussed imaging studies w/ call center representative Radiologist Narrative: CLINICAL IMPRESSION: Chronic abdominal pain ASSESSMENT/PLAN: 48-year-old female with history of chronic abdominal pain presents to the emergency department with abdominal pain following exploratory abdominal surgery on February 08 of this year with incidental removal of a chronic appearing appendicitis. Patient has apparently had persistent abdominal pain for the last 2 weeks, reports of intermittent coffee-ground stools, pain with bowel movements, and interval development of involuntary, spastic muscle spasms. Patient was sent to the ED by her primary care provider with concerns of an acute surgical abdomen. Patient has not had regular follow up with her primary surgeon and has not seen her GI specialist. On arrival, patient's vitals are stable, she is afebrile, not tachycardic, nonseptic and nontoxic appearing she does have frequent spasms affecting the entire body which seem to subside when she is able to calm down. Labs are reassuring showing no leukocytosis, renal insufficiency, transaminitis, electrolyte imbalance or metabolic disturbance. CT abdomen pelvis with nonspecific bowel gas pattern, multiple fluid-filled dilated loops of bowel consistent with possible ileus however also not substantially changed from CT comparison in September of this year. I discussed CT results and patient presentation with Dr. Shah who also visualized CT. Is not felt this patient has an emergent surgical process. It was felt that she needs follow up outpatient with her manager sharepoint. There is no clinical indication of acute GI bleeding or hemodynamic instability today. She had a negative stool guaiac by her primary care provider today. Her exam findings seem out of proportion to her diagnostic workup. We also discussed possibility for endometriosis and recommend PCP and possible pelvic pain specialist. Patient did request additional Ativan. I gave her only 6 tablets and discussed that further refills of this need to come from primary care. Warning signs return to ED sooner outlined in person and discharge papers. DIFFERENTIAL DX: Abdominal pain includes but not limited to urinary tract infection, pyelonephritis, infection, endometriosis, acute diverticulitis, small-bowel obstruction, constipation ED PROCEDURES: See lab and imaging results below ED COURSE: 2:00 p.m. case discussed with Radiology. CT abdomen shows no acute findings. Patient has diffuse multiple dilated fluid-filled loops of small and large bowel which appear unchanged from prior imaging results. This could represent viral gastroenteritis versus chronic ileus. No acute surgical finding identified. Dr Fischer paged. 2:10 p.m.: Discussed with Dr. Fischer. She reviewed patient's postop note which indicates chronic constipation, history of endometriosis, chronic appearing appendicitis. She had recommended that the patient follow up with GI and patient reports that she has not yet done this. Dr. Fischer and also reviewed today's CT results, no acute findings identified. Results and discussion with Dr. Shah discussed with patient. I emphasized the importance of GI follow-up. Patient is asking for more Ativan. I only gave her 6 tablets and discussed that further refills need to come from PCP. CHIEF COMPLAINT: Acute on chronic abdominal pain HPI: 48-year-old female with a past medical history of chronic abdominal pain presents to the emergency department with worsening abdominal pain for the last 2 weeks. Patient reports she had exploratory abdominal surgery on February [address] Shah. She was told at that time that she had her appendix removed although is not acutely infected. There were no other abnormal findings identified. Prior to surgery, patient has had an evaluation with GI but does not remember if she had an upper endoscopy. She reportedly had a normal colonoscopy. She has a history of a BRCA gene mutation and reports having a double mastectomy, total hysterectomy and bilateral oophorectomy 3-4 years ago. She reportedly also saw a pelvic specialist prior to her exploratory surgery and was told everything was normal. She has no UTI symptoms. She reports her abdominal pain has been constant since her surgery on February 08. She had only 1 follow-up appointment with her general surgeon. She saw her primary care for the 1st time today who sent her to the ED. She reports for the last 2 weeks she has had involuntary muscle twitches and spasms. These do not affect her when she is resting or sleeping. She states Ativan helps but admits that she does not take this regularly and her PCP reported that she gave her 12 tablets 3 months ago and that patient still has these leftover. She does not take regular narcotic pain medication. She has no history of anemia but reports over the last 2 weeks she has had intermittent coffee-ground stools. PCP reported to me that she had negative guaiac test today. Patient reports severe pain with eating and having bowel movements. No associated fever, chills , nausea, vomiting or hematemesis. She states pain radiates into her back and her right SI joint. No associated chest pain or shortness of breath she feels that she looks very pale and that her skin color is poor. PMH: Chronic abdominal pain, BRCA mutation, IBS, GERD Pertinent Past Surgical History: Total hysterectomy, bilateral oophorectomy, elective mastectomy, appendectomy Family History: BRCA positive Social History: Nonsmoker, does not abuse illicit drugs, does not drink alcohol , does not take regular narcotics REVIEW OF SYSTEMS: All other systems negative Constitutional: No fever, no chills, positive for appetite change. ENT: No sore throat, congestion, ear pain. Cardiovascular: No chest pain, no palpitations. Respiratory: No cough, no shortness of breath. Gastrointestinal: Positive for abdominal pain, intermittent dark stools] Genitourinary: No hematuria, dysuria, flank pain, positive for pelvic pain Musculoskeletal: No back pain, joint swelling, joint pain, myalgias. Skin: No rashes, color change. Neurological: No headache, dizziness, weakness. PHYSICAL EXAM: General Appearance: Alert, oriented, appropriate, cooperative, NAD, well hydrated, non-toxic appearing, VSS, no hypoxia, intermittently tremulous with spasms throughout the body. Does not appear toxic or septic. HEENT: Oropharynx clear is no erythema or exudates, no tonsillar hypertrophy or asymmetry. Dentition without abnormality. Neck: Supple, nontender, no lymphadenopathy, no midline pain, FROM, no meningismus. Respiratory: There are no retractions, lungs are clear to auscultation. Cardiac: Regular rate and rhythm, no murmurs or gallops. Gastrointestinal: Abdomen is soft, patient is screaming in pain with very light palpation of the abdomen, specifically to right lower quadrant, bowel sounds normal, no masses/hernia Neurological: Alert and oriented x 3, CN 2-12 grossly intact, normal gait no ataxia, DTR's intact, normal sensation and strength Skin: Warm, dry, no rashes, no nodules on palpation. Musculoskeletal: Extremities are symmetrical, full range of motion, no tenderness, deformity, swelling, or erythema. Psychiatric: Patient is oriented X 3, there is no agitation. MEDICAL DECISION MAKING: Patient was seen independently. Secondary supervising physician at time of evaluation was Dr. Johnson. Diagnosis: Chronic abdominal pain. New, requires workup Summary: See Assessment and Plan for summary of ED visit Clinical lab tests: ordered / reviewed. Independent visualization of images, tracing, or specimens: Yes. Decision to obtain medical records or history from someone other than the patient: Patient's friend who is in the room with her Review / Summarize previous medical records: Reviewed prior ED and surgical records Discussed patient with another provider: Dr. Shah Patient Progress: stable . (Jaylen Flores) MDM: The patient was evaluated and managed by the Physician Wire Drawing Die Maker. I discussed the patient's presentation and course with the physician optometric assistant and agree with the evaluation. My co-signature indicates that I have reviewed this chart and I agree with the findings and plan of care as documented. I am the secondary supervising physician. (Moon Johnson) - Data Points Laboratory Results: Laboratory Results 04/23/18 12:30 04/23/18 12:30 Medications Given: Discontinued Medications Hydromorphone HCl (Dilaudid) 0.5 mg IVP EDNOW ONE Stop: 04/23/18 13:10 Last Admin: 04/23/18 13:20 Dose: 0.5 mg Sodium Chloride (Ns) 1,000 mls @ 0 mls/hr IV EDNOW ONE; Wide Open PRN Reason: Protocol Stop: 04/23/18 12:29 Last Admin: 04/23/18 13:01 Dose: 1,000 mls General Time Seen by Provider: 04/23/18 12:24 Initial Vital Signs: Initial Vital Signs Temperature (C) 36.9 C 04/23/18 12:11 Heart Rate 86 04/23/18 12:11 Respiratory Rate 18 04/23/18 12:11 Blood Pressure 136/92 H 04/23/18 12:11 O2 Sat (%) 96 04/23/18 12:11 O2 Delivery Mode Room Air Allergies/Adverse Reactions: No Known Allergies Allergy (Verified 04/23/18 12:09) Home Medications: Medication Instructions Recorded DULoxetine [Cymbalta 60 MG (*)] 120 mg PO HS 09/18/17 Estrogens,Conjugated [Premarin 0.3 0.3 mg PO HS 09/18/17 MG (*)] Melatonin [Melatonin 3 MG (*)] 3 mg PO HS 09/18/17 traZODone [traZODONE 100MG (*)] 100 mg PO HS 09/18/17 Diclofenac Sodium 04/23/18 LORAZEPAM 04/23/18 LORazepam [Ativan] 1 tab PO BID PRN #6 tab 04/23/18 Omeprazole 04/23/18 Departure - Departure Disposition: Home, Routine, Self-Care Clinical Impression: Chronic abdominal pain, Dark stools Condition: Fair Instructions: Abdominal Pain (ED) Additional Instructions: DISCHARGE INSTRUCTIONS FROM YOUR DOCTOR Thank you for visiting our emergency department today. Please keep in mind that discharge from the emergency department does not mean that there is nothing wrong - it simply means that we have not identified an emergency condition that requires further evaluation or treatment in the hospital. You should always plan to follow up with primary care for re-evaluation of your condition in the next 2-3 days. If you have been referred to a specialist, please call as soon as possible (today or tomorrow) to schedule your follow up appointment at the appropriate time. Your lab work today is reassuring, you have no elevation in your infection fighting count and you are not anemic. No electrolyte imbalance or kidney insufficiency. CT scan is essentially unchanged from prior CT scans in September. There is no identified acute surgical process or abscess. I reviewed your presentation, labs and CT scan with Dr. Fischer who personally reviewed today's CT scan. She feels that you would be best served by GI follow-up considering you have had dark stools and persistent abdominal pain. We recommend you to contact Dr. Talley's service for follow-up. Please stick with a liquid diet and advance slowly only as tolerated. Contact GI tomorrow, let them know you were in the emergency department and we recommended follow-up. People present with illnesses and injuries in different ways, and it is always possible that we have missed something. You may always return for re-evaluation if symptoms worsen or if they are not improving or if you develop new/different symptoms. Again, thank you for choosing our emergency department. We hope that you feel better. Referrals: Rand Toro MD [Primary Care Provider] - As per Instructions Hernan Talley MD [Medical Doctor] - 1-2 days without fail Sylwia Shah MD [Medical Doctor] - As per Instructions Prescriptions: LORazepam [Ativan] 1 tab PO BID PRN #6 tab PRN Reason: Anxiety
[2018-04-23 14:26] VITALS: BP 143/84
== END 2018-04-23 14:28 | disposition home or self-care (01) ==
DX: R10.9 Unspecified abdominal pain (principal); G89.29 Other chronic pain; E86.9 Volume depletion, unspecified; R19.5 Other fecal abnormalities; K58.9 Irritable bowel syndrome, unspecified; Z15.09 Genetic susceptibility to other malignant neoplasm
CPT/HCPCS: 96374; J1170; Q9967

== ENCOUNTER 2018-09-27 12:57 | Emergency (ER) | payer BC ==
--- NOTE | 2018-09-27 13:29 | EDPHY ---
H & P Stated Complaint: mid LQ pn x2wks, point tender, abd Sx Hx, better laying down Time Seen by Provider: 09/27/18 13:19 HPI/ROS: HPI: This is a 48-year-old female who presents with Chief Complaint: mid LQ pn x2wks, point tender, abd Sx Hx, better laying down Location: Suprapubic Quality: Tenderness Duration: 2 weeks Signs and Symptoms: no fever, no nausea, no vomiting, no hematemesis, no blood in stool, no abdominal bloating, no diarrhea, no back pain, no urinary symptoms , no vaginal bleeding/discharge, no indigestion, no chest pain, no shortness of breath Timing: Daily, constant Severity: 11/13 Context: Patient has a history of total hysterectomy, cholecystectomy, appendectomy presents with 2 week history of a right sided suprapubic tenderness that is palpable and pinpoint in nature. It does not radiate. Patient has a history of endometriosis with 2 laparoscopic surgeries to remove extensive endometriosis and adhesions per the patient. She denies fever, nausea , vomiting, diarrhea, constipation, urinary symptoms. She does not have her menses and is postmenopausal status post hysterectomy. PCP is Dr. Toro. Eating and drinking without difficulty. Passing flatus. Modifying Factors: None Comment: ROS: A comprehensive 10 system review of systems is otherwise negative aside from elements mentioned in the history of present illness. MEDICAL/SURGICAL/SOCIAL HISTORY: Medical history: Major depression, endometriosis, anxiety disorder Surgical history: HYSTERECTOMY, DOUBLE MASTECTOMY PROPHYLACTIC, cholecystectomy , appendectomy Social history: Never smoked. Recently moved from [place] to the area. Family history noncontributory. CONSTITUTIONAL: Extremely well-appearing middle-aged white female, awake and alert, no obvious distress HEENT: Atraumatic and normocephalic, PERRL, EOMI. Nares patent; no rhinorrhea; no nasal mucosal edema. Tympanic membranes clear. Oropharynx clear, no exudate and moist pink mucosa. Airway patent. No lymphadenopathy. No meningismus. Cardiovascular: Normal S1/S2, regular rate, regular rhythm, without murmur rub or gallop. PULMONARY/CHEST: Symmetrical and nontender. Clear to auscultation bilaterally. Good air movement. No accessory muscle usage. ABDOMEN: Soft, nondistended, suprapubic moderate tenderness, no rebound, no guarding, no peritoneal signs, no masses or organomegaly. No CVAT. EXTREMITIES: 2/2 pulses, strength 5/5, no deformities, no clubbing, no cyanosis or edema. NEUROLOGICAL: no focal neuro deficits. GCS 15. SKIN: Warm and dry, no erythema. no rash. Good capillary refill. Source: Patient Exam Limitations: No limitations - Personal History LMP (Females 10-55): Hysterectomy Current Tetanus/Diphtheria Vaccine: Yes - Medical/Surgical History Hx Asthma: No Hx Chronic Respiratory Disease: No Hx Diabetes: No Hx Cardiac Disease: No Hx Renal Disease: No Hx Cirrhosis: No Hx Alcoholism: No Hx HIV/AIDS: No Hx Splenectomy or Spleen Trauma: No Other PMH: DEPRESSION, HYSTERECTOMY, DOUBLE MASTECTOMY PROPHYLACTIC, MAKENNA SX appy - Social History Smoking Status: Never smoked Constitutional: Initial Vital Signs Temperature (C) 36.7 C 09/27/18 13:03 Heart Rate 82 09/27/18 13:03 Respiratory Rate 18 09/27/18 13:03 Blood Pressure 126/85 H 09/27/18 13:03 O2 Sat (%) 96 09/27/18 13:03 O2 Delivery Mode Room Air Allergies/Adverse Reactions: No Known Allergies Allergy (Verified 09/27/18 13:02) Home Medications: Medication Instructions Recorded DULoxetine [Cymbalta 60 MG (*)] 120 mg PO HS 09/18/17 Estrogens,Conjugated [Premarin 0.3 0.3 mg PO HS 09/18/17 MG (*)] Melatonin [Melatonin 3 MG (*)] 3 mg PO HS 09/18/17 traZODone [traZODONE 100MG (*)] 100 mg PO HS 09/18/17 Diclofenac Sodium 04/23/18 LORAZEPAM 04/23/18 LORazepam [Ativan] 1 tab PO BID PRN #6 tab 04/23/18 Omeprazole 04/23/18 oxyCODONE/APAP 5/325 [Percocet 1 - 2 tab PO Q4H PRN #10 tab 09/27/18 5/325 (*)] Medical Decision Making - Diagnostics Imaging Results: Imaging Impressions Pelvic/Renal Ultrasound 09/27/18 13:50 Impression: No suspicious solid mass seen. Post-hysterectomy changes. Findings and recommendations discussed with Kayla Borrero at 1515 hour, 2018. ED Course/Re-evaluation: Vital signs reviewed and stable upon arrival. No systemic signs. IV access, laboratory studies, urinalysis, pelvic ultrasound ordered Given 1 L normal saline, IV Toradol 30 mg and IV promethazine 12.5 mg 1435: Laboratory studies reviewed and No signs of leukocytosis/anemia/platelet dysfunction/LIZET/elevated LFTs/electrolyte imbalance/pancreatitis/. 1438: Urinalysis is unremarkable. 1500: Notified by RN that patient is requesting more pain medication. Looked Patient up on the [facility] database and shows no narcotic prescriptions in the last 5 months. 1520: Called by radiologist, Dr. Toscano, that pelvic ultrasound is unremarkable. I doubt that this is obstructive process as patient has good bowel sounds, no nausea/vomiting/fever. Will give prescription for small amount of Percocet referral to OBGYN This patient was seen under the supervision of my secondary supervising physician. I evaluated and cared for this patient independently. Differential Diagnosis: Abdominal pain in a female including but not limited to ovarian cyst, pelvic inflammatory disease, ovarian torsion, urinary tract infection, and appendicitis. - Data Points Laboratory Results: Laboratory Results 09/27/18 13:53 09/27/18 13:53 09/27/18 09/27/18 09/27/18 13:53 13:53 13:53 WBC 3.83 10^3/uL 10^3/uL (3.80-9.50) RBC 4.33 10^6/uL 10^6/uL (4.18-5.33) Hgb 13.6 g/dL g/dL (12.6-16.3) Hct 39.7 % % (38.0-47.0) MCV 91.7 fL fL (81.5-99.8) MCH 31.4 pg pg (27.9-34.1) MCHC 34.3 g/dL g/dL (32.4-36.7) RDW 12.2 % % (11.5-15.2) Plt Count 214 10^3/uL 10^3/uL (150-400) MPV 9.1 fL fL (8.7-11.7) Neut % (Auto) 49.9 % % (39.3-74.2) Lymph % (Auto) 39.9 % % (15.0-45.0) [place] % (Auto) 8.9 % % (4.5-13.0) Eos % (Auto) 0.5 % L % (0.6-7.6) Baso % (Auto) 0.5 % % (0.3-1.7) Nucleat RBC Rel Count 0.0 % % (0.0-0.2) Absolute Neuts (auto) 1.91 10^3/uL 10^3/uL (1.70-6.50) Absolute Lymphs (auto) 1.53 10^3/uL 10^3/uL (1.00-3.00) Absolute Monos (auto) 0.34 10^3/uL 10^3/uL (0.30-0.80) Absolute Eos (auto) 0.02 10^3/uL L 10^3/uL (0.03-0.40) Absolute Basos (auto) 0.02 10^3/uL 10^3/uL (0.02-0.10) Absolute Nucleated RBC 0.00 10^3/uL 10^3/uL (0-0.01) Immature Gran % 0.3 % % (0.0-1.1) Immature Gran # 0.01 10^3/uL 10^3/uL (0.00-0.10) Sodium 135 mEq/L mEq/L (135-145) Potassium 4.4 mEq/L mEq/L (3.5-5.2) Chloride 101 mEq/L mEq/L (97-110) Carbon Dioxide 26 mEq/l mEq/l (22-31) Anion Gap 8 mEq/L mEq/L (6-14) BUN 8 mg/dL mg/dL (7-23) Creatinine 0.6 mg/dL mg/dL (0.6-1.0) Estimated GFR > 60 Glucose 80 mg/dL mg/dL (70-100) Calcium 9.2 mg/dL mg/dL (8.5-10.4) Total Bilirubin 0.3 mg/dL mg/dL (0.1-1.4) Conjugated Bilirubin 0.0 mg/dL mg/dL (0.0-0.5) Unconjugated Bilirubin 0.3 mg/dL mg/dL (0.0-1.1) AST 28 IU/L IU/L (14-46) ALT 35 IU/L IU/L (9-52) Alkaline Phosphatase 40 IU/L IU/L (38-126) Total Protein 6.6 g/dL g/dL (6.3-8.2) Albumin 4.1 g/dL g/dL (3.5-5.0) Lipase 71 IU/L IU/L (23-300) Beta HCG, Qual NEGATIVE Urine Color Urine Appearance Urine pH Ur Specific [place] Urine Protein Urine Ketones Urine Blood Urine Nitrate Urine Bilirubin Urine Urobilinogen Ur Leukocyte Esterase Urine Glucose 09/27/18 13:45 WBC RBC Hgb Hct MCV MCH MCHC RDW Plt Count MPV Neut % (Auto) Lymph % (Auto) [place] % (Auto) Eos % (Auto) Baso % (Auto) Nucleat RBC Rel Count Absolute Neuts (auto) Absolute Lymphs (auto) Absolute Monos (auto) Absolute Eos (auto) Absolute Basos (auto) Absolute Nucleated RBC Immature Gran % Immature Gran # Sodium Potassium Chloride Carbon Dioxide Anion Gap BUN Creatinine Estimated GFR Glucose Calcium Total Bilirubin Conjugated Bilirubin Unconjugated Bilirubin AST ALT Alkaline Phosphatase Total Protein Albumin Lipase Beta HCG, Qual Urine Color COLORLESS Urine Appearance CLEAR Urine pH 6.0 (5.0-7.5) Ur Specific [place] 1.002 (1.002-1.030) Urine Protein NEGATIVE (NEGATIVE) Urine Ketones NEGATIVE (NEGATIVE) Urine Blood NEGATIVE (NEGATIVE) Urine Nitrate NEGATIVE (NEGATIVE) Urine Bilirubin NEGATIVE (NEGATIVE) Urine Urobilinogen NEGATIVE EU EU (0.2-1.0) Ur Leukocyte Esterase NEGATIVE (NEGATIVE) Urine Glucose NEGATIVE (NEGATIVE) Medications Given: Discontinued Medications Sodium Chloride (Ns) 1,000 mls @ 0 mls/hr IV EDNOW ONE; Wide Open PRN Reason: Protocol Stop: 09/27/18 13:51 Last Admin: 09/27/18 14:13 Dose: 1,000 mls Ketorolac Tromethamine (Toradol) 30 mg IVP EDNOW ONE Stop: 09/27/18 13:51 Last Admin: 09/27/18 14:13 Dose: 30 mg Promethazine HCl (Phenergan) 12.5 mg IVP EDNOW ONE Stop: 09/27/18 13:51 Last Admin: 09/27/18 14:13 Dose: 12.5 mg Departure - Departure Disposition: Home, Routine, Self-Care Clinical Impression: History of endometriosis Abdominal pain Qualifiers: Abdominal location: right lower quadrant Qualified Code(s): R10.31 - Right lower quadrant pain Condition: Good Instructions: Oxycodone/Acetaminophen (By mouth), Endometriosis (ED), Pelvic Pain in Women (ED) Additional Instructions: Consume a minimum of 8-10 glasses of water or electrolyte fluid replacement drinks that include Gatorade, Powerade, Pedialyte. Eat a bland diet for the next 48 hours and then slowly advance as tolerated. Take Tylenol 650 mg every 4 hours and/or Ibuprofen 600 mg every 8 hours with food as needed for pain. Use Percocet every 6 hours as needed for severe/break through pain. Do not use Tylenol and Percocet concomitantly. Follow up with OBGYN/PCP in the next 5-7 days if symptoms persist for further evaluation. Referrals: Rand Toro MD [Primary Care Provider] - As per Instructions Maria Guadalupe Carrera DO [Doctor of Osteopathy] - As per Instructions Prescriptions: oxyCODONE/APAP 5/325 [Percocet 5/325 (*)] 1 - 2 tab PO Q4H PRN #10 tab PRN Reason: Pain, Severe
[2018-09-27] MEDS ORDERED: KETOROLAC 30 MG/1 ML SDV IVP ONE (13:50)
[2018-09-27] MEDS ORDERED: NS 1,000 ML IV ONE (13:50)
[2018-09-27] MEDS ORDERED: PROMETHAZINE HCL 25 MG/ML INJ IVP ONE (13:50)
[2018-09-27 14:09] LABS: PLATELET COUNT 214 10^3/uL (150-400)
[2018-09-27 15:39] VITALS: BP 133/74
== END 2018-09-27 15:38 | disposition home or self-care (01) ==
DX: R10.31 Right lower quadrant pain (principal); E86.9 Volume depletion, unspecified; Z78.0 Asymptomatic menopausal state; Z90.710 Acquired absence of both cervix and uterus; Z87.42 Personal history of other diseases of the female genital tract
CPT/HCPCS: 96374; J1885; J2550

== ENCOUNTER 2018-10-17 12:25 | Emergency (ER) | payer BC | END 2018-10-17 16:37 | disposition home or self-care (01) ==